=== PATIENT | female | born 1990 | race African-American/Black ===

== ENCOUNTER 2018-02-14 12:04 | Emergency (ER) | payer OTHER ==
[2018-02-14 12:13] VITALS: BP 122/91
[2018-02-14] MEDS ORDERED: BUFFERED LIDOCAINE 10 ML SYRINGE SUBQ STA (12:49)
--- NOTE | 2018-02-14 12:57 | ED Physician Documentation ---
PD HPI LOWER EXT INJURY - Stated complaint Stated Complaint: LF FOOT INJURY - Chief complaint Chief Complaint: Ext Problem - History obtained from History obtained from: Patient - History of Present Illness PD HPI LOW EXT INJURY LOCATION: Other (She stubbed her left long toe on bedframe this morning and injured it. She has moderate pain but no other injuries. She is active duty in the .) Review of Systems Constitutional: reports: Reviewed and negative Cardiac: reports: Reviewed and negative Respiratory: reports: Reviewed and negative PD PAST MEDICAL HISTORY - Past Medical History Past Medical History: No - Past Surgical History Past Surgical History: No - Present Medications Home Medications: Ambulatory Orders Medication Instructions Recorded Confirmed No Known Home Medications [No 02/14/18 02/14/18 Known Home Medications] - Allergies Allergies/Adverse Reactions: Allergies Allergy/AdvReac Type Severity Reaction Status Date / Time No Known Drug Allergies Allergy Verified 02/14/18 12:13 - Social History Does the pt smoke?: No Smoking Status: Never smoker Does the pt drink ETOH?: No Does the pt have substance abuse?: No - Immunizations Immunizations are current?: Yes PD ED PE NORMAL - Vitals Vital signs reviewed: Yes - General General: Alert and oriented X 3, No acute distress - Extremities Extremities: Other (Left foot there is an obvious medial deformity of the long toe at the level of the proximal phalanx with normal neurovascular status distal to this.) - Neuro Neuro: Alert and oriented X 3, Normal speech Results - Vitals Vitals: Vital Signs - 24 hr 02/14/18 12:10 Temperature 36.6 C Heart Rate 52 L Respiratory 15 Rate Blood Pressure 122/91 H O2 Saturation 100 Oxygen O2 Source Room air - Rads (name of study) Lt Toes Radiology: EMP read contemporaneously (Comminuted intra-articular fracture of the second proximal phalanx with mild displacement and moderate angulation) Procedures - Reduction Body part reduced: Toe Fracture or dislocation: Fracture dislocation Anesthesia: Hematoma block, Lidocaine (enter cc) (2ml) Reduction aftercare: Other (judith tape and frx shoe) PD MEDICAL DECISION MAKING - ED course ED course: After hematoma block the toe was reduced with visual alignment. Then judith taped and a fracture shoe. - Sepsis Event Vital Signs: Vital Signs - 24 hr 02/14/18 12:10 Temperature 36.6 C Heart Rate 52 L Respiratory 15 Rate Blood Pressure 122/91 H O2 Saturation 100 Oxygen O2 Source Room air Departure - Departure Disposition: 01 Home, Self Care Clinical Impression: Fracture dislocation of toe of left foot Qualifiers: Encounter type: initial encounter Fracture type: closed Qualified Code(s): S92.912A - Unspecified fracture of left toe(s), initial encounter for closed fracture Condition: Good Record reviewed to determine appropriate education?: Yes Instructions: ED Fx Toe Closed Comments: Keep the toes judith taped as shown, ibuprofen as needed for pain. 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 Wear the special shoe when up and around. Forms: Activity restrictions Discharge Date/Time: 02/14/18 13:15
--- NOTE | 2018-02-15 23:30 | XRAY Report ---
Procedure Date: 02/14/2018 Accession Number: [id number] / [id number] Procedure: XR - Toe(s) LT CPT Code: FULL RESULT: EXAM: LEFT TOE RADIOGRAPHY EXAM DATE: 02/14/2018 12:31 PM. CLINICAL HISTORY: Deformity. Pain and discoloration. Stubbed toe on bed this morning. COMPARISON: None. TECHNIQUE: 3 views. FINDINGS: Bones: Comminuted fracture through the proximal to mid second proximal phalanx with mild displacement and moderate angulation. The fracture line extends to the articular surface of the MTP joint. Joints: No subluxation. Soft Tissues: No significant abnormality. IMPRESSION: Acute, comminuted, intra-articular fracture of the second proximal phalanx with mild displacement and moderate angulation. RAD[facility]
== END 2018-02-14 13:15 | disposition home or self-care (01) ==
LOC: ED 12:04
DX: S92.512A Displaced fracture of proximal phalanx of left lesser toe(s), initial encounter for closed fracture (principal); W22.03XA Walked into furniture, initial encounter; Y92.003 Bedroom of unspecified non-institutional (private) residence as the place of occurrence of the external cause
CPT/HCPCS: 28515; 73660; 99283

== ENCOUNTER 2018-03-08 12:38 | Emergency (ER) | payer OTHER ==
[2018-03-08 13:35] LABS: HCG UR QUAL POSITIVE
--- NOTE | 2018-03-08 13:45 | ED Physician Documentation ---
History of Present Illness - Stated complaint Stated Complaint: TEST - Chief complaint Chief Complaint: General - History obtained from History obtained from: Patient - History of Present Illness Timing: Other (G0 now G1 with LMP around February 03, has taken a couple of tests at home and they were positive and wants confirmation. She is having no cramping or bleeding.) Review of Systems Constitutional: reports: Reviewed and negative Cardiac: reports: Reviewed and negative Respiratory: reports: Reviewed and negative PD PAST MEDICAL HISTORY - Past Medical History Past Medical History: No Other Past Medical History: Neurological disorder. - Past Surgical History Past Surgical History: No - Present Medications Home Medications: Ambulatory Orders Medication Instructions Recorded Confirmed Vit Calc,Iron,Folic 1 each PO DAILY #90 tablet 03/08/18 [ Vitamins] - Allergies Allergies/Adverse Reactions: Allergies Allergy/AdvReac Type Severity Reaction Status Date / Time No Known Drug Allergies Allergy Verified 02/14/18 12:13 - Social History Does the pt smoke?: No Smoking Status: Never smoker Does the pt drink ETOH?: No Does the pt have substance abuse?: No - Immunizations Immunizations are current?: Yes PD ED PE NORMAL - Vitals Vital signs reviewed: Yes - General General: Alert and oriented X 3, No acute distress - Neuro Neuro: Alert and oriented X 3, Normal speech Results - Vitals Vitals: Vital Signs - 24 hr 03/08/18 03/08/18 13:00 13:48 Temperature 37.1 C 36.7 C Heart Rate 112 H 83 Respiratory 18 17 Rate Blood Pressure 122/85 H 123/90 H O2 Saturation 98 100 Oxygen O2 Source Room air - Labs Labs: Laboratory Tests 03/08/18 13:08 Ur Specific [place] >=1.030 H Urine HCG, Qual POSITIVE PD MEDICAL DECISION MAKING - Sepsis Event Vital Signs: Vital Signs - 24 hr 03/08/18 03/08/18 13:00 13:48 Temperature 37.1 C 36.7 C Heart Rate 112 H 83 Respiratory 18 17 Rate Blood Pressure 122/85 H 123/90 H O2 Saturation 98 100 Oxygen O2 Source Room air Departure - Departure Disposition: 01 Home, Self Care Clinical Impression: Qualifiers: Weeks of gestation: less than 8 weeks Qualified Code(s): Z3A.01 - Less than 8 weeks gestation of Condition: Good Record reviewed to determine appropriate education?: Yes Instructions: ED Care Prescriptions: Vit Calc,Iron,Folic [ Vitamins] 1 each PO DAILY #90 tablet Comments: [facility]. Discharge Date/Time: 03/08/18 13:56
[2018-03-08 13:49] VITALS: BP 123/90
== END 2018-03-08 13:56 | disposition home or self-care (01) ==
LOC: ED 12:38
DX: Z32.01 Encounter for pregnancy test, result positive (principal)
CPT/HCPCS: 81025; 99282; 99283

== ENCOUNTER 2018-03-24 16:28 | Emergency (ER) | payer OTHER ==
--- NOTE | 2018-03-24 16:53 | ED Physician Documentation ---
PD HPI ABD PAIN - Stated complaint Stated Complaint: SPOTTING/7 WEEKS - Chief complaint Chief Complaint: Abd Pain - History obtained from History obtained from: Patient - History of Present Illness Timing - onset: Yesterday (G1 at 7 weeks gestation, LMP February 02 whose had slight spotting and cramping since yesterday. She thinks her blood type is O+.) Review of Systems Constitutional: denies: Fever, Chills Cardiac: reports: Reviewed and negative Respiratory: reports: Reviewed and negative GI: reports: Reviewed and negative PD PAST MEDICAL HISTORY - Past Surgical History Past Surgical History: No - Present Medications Home Medications: Ambulatory Orders Medication Instructions Recorded Confirmed Vit Calc,Iron,Folic 1 each PO DAILY #90 tablet 03/08/18 03/24/18 [ Vitamins] - Allergies Allergies/Adverse Reactions: Allergies Allergy/AdvReac Type Severity Reaction Status Date / Time No Known Drug Allergies Allergy Verified 03/24/18 16:36 - Social History Does the pt smoke?: No Smoking Status: Never smoker Does the pt drink ETOH?: No Does the pt have substance abuse?: No - Immunizations Immunizations are current?: Yes PD ED PE NORMAL - Vitals Vital signs reviewed: Yes - General General: Alert and oriented X 3, No acute distress - Respiratory Respiratory: No respiratory distress, Clear bilaterally - Abdomen Abdomen: Normal bowel sounds, Soft, Non tender - Female Female : Other (I believe that I am able to make out IUP with a heart rate of about 122 on bedside ultrasound, transabdominal approach but I am not confident enough to hang my hat on it.) - Neuro Neuro: Alert and oriented X 3, Normal speech Results - Vitals Vitals: Vital Signs - 24 hr 03/24/18 03/24/18 16:34 19:05 Temperature 36.8 C Heart Rate 71 81 Respiratory 18 16 Rate Blood Pressure 115/68 112/70 O2 Saturation 99 100 Oxygen O2 Source Room air - Labs Labs: Laboratory Tests 03/24/18 03/24/18 03/24/18 16:55 16:55 16:55 WBC 7.7 RBC 4.14 L Hgb 11.9 L Hct 35.0 L MCV 84.6 MCH 28.7 MCHC 33.9 RDW 14.1 Plt Count 276 MPV 7.7 L Neut # (Auto) 5.9 Lymph # (Auto) 1.4 L [place] # (Auto) 0.4 Eos # (Auto) 0.0 Baso # (Auto) 0.0 Absolute Nucleated RBC 0.00 Nucleated RBC % 0.0 Sodium 133 L Potassium 3.7 Chloride 103 Carbon Dioxide 25 Anion Gap 5.0 L BUN 11 Creatinine 0.8 Estimated GFR (MDRD) 105 Glucose 91 Calcium 9.0 Total Bilirubin 0.7 AST 17 ALT 11 Alkaline Phosphatase 39 L Total Protein 7.3 Albumin 4.2 Globulin 3.1 Albumin/Globulin Ratio 1.4 Lipase 32 HCG, Quant Urine Color Urine Clarity Urine pH Ur Specific [place] Urine Protein Urine Glucose (UA) Urine Ketones Urine Occult Blood Urine Nitrite Urine Bilirubin Urine Urobilinogen Ur Leukocyte Esterase Urine RBC Urine WBC Ur Squamous Epith Cells Urine Bacteria Ur Microscopic Review Urine Culture Comments Blood Type O POSITIVE 03/24/18 03/24/18 16:55 19:10 WBC RBC Hgb Hct MCV MCH MCHC RDW Plt Count MPV Neut # (Auto) Lymph # (Auto) [place] # (Auto) Eos # (Auto) Baso # (Auto) Absolute Nucleated RBC Nucleated RBC % Sodium Potassium Chloride Carbon Dioxide Anion Gap BUN Creatinine Estimated GFR (MDRD) Glucose Calcium Total Bilirubin AST ALT Alkaline Phosphatase Total Protein Albumin Globulin Albumin/Globulin Ratio Lipase HCG, Quant 77616.00 Urine Color YELLOW Urine Clarity CLEAR Urine pH 8.0 H Ur Specific [place] 1.010 Urine Protein NEGATIVE Urine Glucose (UA) NEGATIVE Urine Ketones NEGATIVE Urine Occult Blood NEGATIVE Urine Nitrite NEGATIVE Urine Bilirubin NEGATIVE Urine Urobilinogen 0.2 (NORMAL) Ur Leukocyte Esterase TRACE H Urine RBC 0-5 Urine WBC 6-10 H Ur Squamous Epith Cells MANY Squamous H Urine Bacteria Many H Ur Microscopic Review INDICATED Urine Culture Comments NOT INDICATED Blood Type - Rads (name of study) Pelvic sono Radiology: EMP read contemporaneously (Single live intrauterine measuring 6 weeks and 3 days. Note made of complex right ovarian cyst measuring 3 7 x 1.6 x 2.6 cm.) PD MEDICAL DECISION MAKING - Sepsis Event Vital Signs: Vital Signs - 24 hr 03/24/18 03/24/18 16:34 19:05 Temperature 36.8 C Heart Rate 71 81 Respiratory 18 16 Rate Blood Pressure 115/68 112/70 O2 Saturation 99 100 Oxygen O2 Source Room air Departure - Departure Disposition: 01 Home, Self Care Clinical Impression: Threatened affecting intrauterine Condition: Good Record reviewed to determine appropriate education?: Yes Instructions: ED Miscarriage Poss Comments: The baby looks fine on ultrasound making the risk of miscarriage very low. You do have a 3.7 x 1.8 x 2.6 cm complex right ovarian cyst [place] get another ultrasound on this in a few weeks time. Return if worsening.
[2018-03-24 17:09] LABS: BASOPHILS % (AUTO) 0.5 %; EOSINOPHILS % (AUTO) 0.4 %; HGB - HEMOGLOBIN 11.9 g/dL (12.0-16.0); LYMPHOCYTES # (AUTO) 1.4 10^3/uL (1.5-3.5); LYMPHOCYTES % (AUTO) 17.7 %; MEAN CORPUSCULAR HEMOGLOBIN 28.7 pg (27.0-31.0); MEAN CORPUSCULAR HGB CONC 33.9 g/dL (32.0-36.0); MEAN CORPUSCULAR VOLUME 84.6 fL (81.0-99.0); MEAN PLATELET VOLUME 7.7 fL (7.9-10.8); MONOCYTES # (AUTO) 0.4 10^3/uL (0.0-1.0); MONOCYTES % (AUTO) 5.2 %; NEUTROPHILS # (AUTO) 5.9 10^3/uL (1.5-6.6); NEUTROPHILS % (AUTO) 76.2 %; PLT - PLATELET COUNT 276 10^3/uL (130-450); RED BLOOD COUNT 4.14 10^6/uL (4.20-5.40); RED CELL DISTRIBUTION WIDTH 14.1 % (12.0-15.0); WHITE BLOOD COUNT 7.7 x10^3/uL (4.8-10.8)
[2018-03-24 17:19] LABS: ALBUMIN 4.2 g/dL (3.2-5.5); ALBUMIN/GLOBULIN RATIO 1.4 (1.0-2.2); BILIRUBIN,TOTAL 0.7 mg/dL (0.2-1.0); CREATININE 0.8 mg/dL (0.4-1.0); TOTAL PROTEIN 7.3 g/dL (6.7-8.2)
[2018-03-24 19:07] VITALS: BP 112/70
[2018-03-24 19:31] LABS: BILIRUBIN,URINE NEGATIVE (NEGATIVE); GLUCOSE, URINE (UA) NEGATIVE (NEGATIVE); KETONES,URINE (UA) NEGATIVE (NEGATIVE); LEUKOCYTE ESTERASE, URINE TRACE (NEGATIVE); NITRITE,URINE NEGATIVE (NEGATIVE); OCCULT BLOOD,URINE NEGATIVE (NEGATIVE); PROTEIN,URINE NEGATIVE (NEGATIVE); UROBILINOGEN,URINE 0.2 (NORMAL) E.U./dL (NORMAL)
[2018-03-24 19:38] LABS: CLARITY,URINE CLEAR (CLEAR)
[2018-03-24 19:40] LABS: BACTERIA,URINE Many /HPF (None Seen); RBC,URINE 0-5 /HPF (0-5); SQUAMOUS EPITHELIAL CELL,UR MANY Squamous (<= Few)
--- NOTE | 2018-03-24 19:50 | Ultrasound Report ---
Procedure Date: 03/24/2018 Accession Number: [id number] / [id number] Procedure: US - OB First Trimester CPT Code: FULL RESULT: EXAM: FIRST TRIMESTER OBSTETRIC ULTRASOUND (Less than 11 weeks) EXAM DATE: 03/24/2018 07:19 PM. CLINICAL HISTORY: Spotting, 7w. LMP: 02/02/2018. COMPARISONS: None. TECHNIQUE: Transabdominal and transvaginal ultrasound examination with static image documentation. CLINICAL DATES: EGA 7 weeks 1 day with ERLIN 11/09/2018 based on LMP. ASSESSMENT: Gestational Sac: Single intrauterine. Mean gestational sac diameter: 17.3 mm = 6 weeks 0 days. Embryo: CRL (crown-rump length) 5.7 mm = 6 weeks 3 days. Cardiac activity: 123 beats per minute. Yolk sac: 4.1 mm. Amniotic fluid: Not accurately assessed at this gestational age. Early placenta: Not visible at this gestational age. Other: No perigestational fluid collection demonstrated. MATERNAL STRUCTURES: Uterus: Anteverted. Unremarkable. Cervix: Closed. Right Ovary/Adnexa: There is a complex cyst with debris measuring 3.7 x 1.8 x 2.6 cm. Otherwise unremarkable.. The ovary measures 4.2 x 2.7 x 3.9 cm, volume 23 cc. Left Ovary/Adnexa: Unremarkable. The ovary measures 2.8 x 1.1 x 1.5 cm, volume 2.4 cc. Free Fluid: Trace. Other: None. IMPRESSION: 1. Single viable intrauterine at EGA 6 weeks 3 days with ERLIN 11/14/2018 based on crown-rump length RADIA
== END 2018-03-24 20:16 | disposition home or self-care (01) ==
LOC: ED 16:28
DX: O20.0 Threatened abortion (principal); O99.89 Other specified diseases and conditions complicating pregnancy, childbirth and the puerperium; Z3A.01 Less than 8 weeks gestation of pregnancy
CPT/HCPCS: 36415; 76801; 76817; 80053; 81001; 81003; 83690; 84702; 85025; 86900; 86901; 87086; 99283

== ENCOUNTER 2018-09-29 17:49 | Outpatient (CLI) | payer OTHER ==
[2018-09-29 18:21] VITALS: BP 109/68
[2018-09-29 20:02] LABS: MUDS CUTOFF CONCENTRATIONS CUTOFF CONC BELOW:
[2018-09-29 20:21] LABS: AMPHETAMINE SCREEN,URINE NEGATIVE (NEGATIVE); BENZODIAZEPINES SCREEN, URINE NEGATIVE (NEGATIVE); COCAINE SCREEN URINE NEGATIVE (NEGATIVE); METHADONE SCREEN, URINE NEGATIVE (NEGATIVE); METHAMPHETAMINES SCREEN, URINE NEGATIVE (NEGATIVE); OPIATE SCREEN, URINE NEGATIVE (NEGATIVE); OXYCODONE SCREEN, URINE NEGATIVE (NEGATIVE); PROPOXYPHENE SCREEN, URINE NEGATIVE (NEGATIVE); TRICYCLIC ANTIDEPRESSANT,URINE NEGATIVE (NEGATIVE)
[2018-09-29 21:16] LABS: ALBUMIN 3.2 g/dL (3.2-5.5); BILIRUBIN,DIRECT 0.1 mg/dL (0.1-0.5); BILIRUBIN,TOTAL 0.6 mg/dL (0.2-1.0); TOTAL PROTEIN 6.5 g/dL (6.7-8.2)
--- NOTE | 2018-09-30 01:39 | HISTORY & PHYSICAL EXAMINATION ---
DATE OF SERVICE: 09/29/2018 Physician: Ty Frias MD LABOR AND DELIVERY CHECK WITH NST HISTORY OF PRESENT ILLNESS: Patient is a 27-year-old primigravida at 34 weeks 1 day 's gestation who reports vomiting after a barbecue meal earlier today. Her nausea and vomiting have since subsided. She underwent NST, which initially did not meet criteria for reactivity. ELECTRONIC MONITORING TRACING: Baseline 130s. Initial 20-30 minutes, no significant accelerat ions, after which patient met criteria with 315 x 15 accelerations within a moving 20-minute window. Possible uterine irritability. PHYSICAL EXAMINATION GENERAL: Alert, oriented. ABDOMEN: No tenderness. No liver tenderness. GENITOURINARY: Uterus: No appreciable contractions, nontender. Normal resting tone. Cervical exam not accomplished. Urine toxicology screen pending. ASSESSMENT: Patient currently has a category 1 strip with criteria positive for NST. Patient does r eport diminished activity over the last 3 days. Indication for NST criteria being applied to t he strip is decreased movement. Overall, patient's tracing now meets criteria. We revie wed need to report decreased movement. She is to keep her next appointment at the [facility]. TD: 09/29/2018 20:44
== END 2018-09-29 22:14 | disposition home or self-care (01) ==
LOC: WFO 17:49 → FBP 17:52 → WFO 22:14
PROVIDERS: ATTEND Obstetrics & Gynecology
DX: O21.2 Late vomiting of pregnancy (principal); O36.8130 Decreased fetal movements, third trimester, not applicable or unspecified; Z3A.34 34 weeks gestation of pregnancy
CPT/HCPCS: 36415; 80076; 80306; 82239; 99213

== ENCOUNTER 2019-03-08 17:31 | Emergency (ER) | payer OTHER ==
[2019-03-08 18:14] LABS: BASOPHILS % (AUTO) 0.4 %; EOSINOPHILS # (AUTO) 0.2 10^3/uL (0.0-0.7); EOSINOPHILS % (AUTO) 1.8 %; HGB - HEMOGLOBIN 12.8 g/dL (12.0-16.0); LYMPHOCYTES # (AUTO) 1.6 10^3/uL (1.5-3.5); LYMPHOCYTES % (AUTO) 17.8 %; MEAN CORPUSCULAR HEMOGLOBIN 28.3 pg (27.0-31.0); MEAN CORPUSCULAR HGB CONC 32.5 g/dL (32.0-36.0); MONOCYTES # (AUTO) 0.4 10^3/uL (0.0-1.0); MONOCYTES % (AUTO) 4.5 %; NEUTROPHILS # (AUTO) 6.7 10^3/uL (1.5-6.6); NEUTROPHILS % (AUTO) 74.8 %; PLT - PLATELET COUNT 317 10^3/uL (130-450); RED BLOOD COUNT 4.53 10^6/uL (4.20-5.40); RED CELL DISTRIBUTION WIDTH 12.8 % (12.0-15.0); WHITE BLOOD COUNT 8.9 x10^3/uL (4.8-10.8)
[2019-03-08] MEDS ORDERED: KETOROLAC 30 MG/ML VIAL IVP STA (18:19)
[2019-03-08] MEDS ORDERED: LIDOCAINE VISCOUS 2% 15 ML UDC MM STA (18:19)
[2019-03-08] MEDS ORDERED: MAG HYDROX/AL HYDROX/SIMETH 30 ML UDC PO STA (18:19)
[2019-03-08] MEDS ORDERED: ONDANSETRON 4 MG/2 ML VIAL IVP STA (18:19)
--- NOTE | 2019-03-08 18:20 | ED Physician Documentation ---
PD HPI ABD PAIN - Stated complaint Stated Complaint: UPPER ABD PX/NAUSEA - Chief complaint Chief Complaint: Abd Pain - History obtained from History obtained from: Patient - History of Present Illness Timing - onset: Yesterday (She is had consistent nonradiating sharp epigastric pain since yesterday after eating and Oreo cookie. She is been vomiting. Last bowel movement was yesterday relatively normal. No sick contacts.) Review of Systems Ten Systems: 10 systems reviewed and negative Constitutional: denies: Fever, Chills Cardiac: denies: Chest pain / pressure, Palpitations Respiratory: denies: Dyspnea, Cough PD PAST MEDICAL HISTORY - Past Surgical History Past Surgical History: No - Present Medications Home Medications: Ambulatory Orders Medication Instructions Recorded Confirmed Gabapentin 200 mg PO TID 03/08/19 03/08/19 Hydrocodone/Acetaminophen 1 - 2 each PO Q6H PRN #14 tablet 03/08/19 [Hydrocodon-Acetaminophen 5-325] Ondansetron Odt [Zofran] 4 mg TL Q6H PRN #10 tablet 03/08/19 - Allergies Allergies/Adverse Reactions: Allergies Allergy/AdvReac Type Severity Reaction Status Date / Time No Known Drug Allergies Allergy Verified 03/08/19 17:47 - Social History Does the pt smoke?: No Smoking Status: Never smoker Does the pt drink ETOH?: No Does the pt have substance abuse?: No - Immunizations Immunizations are current?: Yes - POLST Patient has POLST: No PD ED PE NORMAL - Vitals Vital signs reviewed: Yes - General General: Alert and oriented X 3, No acute distress - HEENT HEENT: PERRL, EOMI - Neck Neck: Supple, no meningeal sign, No bony TTP - Cardiac Cardiac: RRR, No murmur - Respiratory Respiratory: No respiratory distress, Clear bilaterally - Abdomen Abdomen: Normal bowel sounds, Soft, Other (Tender in the epigastrium and right upper quadrant without surgical signs) - Back Back: No CVA TTP, No spinal TTP - Derm Derm: Normal color, Warm and dry - Extremities Extremities: No edema, No calf tenderness / cord - Neuro Neuro: Alert and oriented X 3, Normal speech Results - Vitals Vitals: Vital Signs - 24 hr 03/08/19 03/08/19 17:46 18:37 Temperature 36.7 C Heart Rate 87 84 Respiratory 16 17 Rate Blood Pressure 132/91 H 141/102 H O2 Saturation 100 100 Oxygen O2 Source Room air - Labs Labs: Laboratory Tests 03/08/19 03/08/19 03/08/19 18:04 18:04 18:14 WBC 8.9 RBC 4.53 Hgb 12.8 Hct 39.4 MCV 87.0 MCH 28.3 MCHC 32.5 RDW 12.8 Plt Count 317 MPV 10.0 Neut # (Auto) 6.7 H Lymph # (Auto) 1.6 [place] # (Auto) 0.4 Eos # (Auto) 0.2 Baso # (Auto) 0.0 Absolute Nucleated RBC 0.00 Nucleated RBC % 0.0 Sodium 141 Potassium 3.5 Chloride 106 Carbon Dioxide 23 Anion Gap 12.0 BUN 10 Creatinine 0.8 Estimated GFR (MDRD) 104 Glucose 130 H Calcium 9.3 Total Bilirubin 2.1 H AST 938 H ALT 838 H Alkaline Phosphatase 161 H Total Protein 8.0 Albumin 4.7 Globulin 3.3 Albumin/Globulin Ratio 1.4 Lipase 38 Urine Color DARK YELLOW Urine Clarity CLEAR Urine pH 6.5 Ur Specific [place] 1.020 Urine Protein TRACE Urine Glucose (UA) NEGATIVE Urine Ketones TRACE Urine Occult Blood NEGATIVE Urine Nitrite NEGATIVE Urine Bilirubin NEGATIVE Urine Urobilinogen 2 H Ur Leukocyte Esterase NEGATIVE Ur Microscopic Review NOT INDICATED Urine Culture Comments NOT INDICATED Urine HCG, Qual NEGATIVE - Rads (name of study) RUQ sono Radiology: EMP read contemporaneously (fatty liver and cholelithiasis) PD MEDICAL DECISION MAKING - ED course ED course: 28-year-old woman with epigastric and right upper quadrant pain with vomiting of days duration. Tender in the right upper quadrant consistent with a biliary etiology as evidenced by her labs with elevated transaminases, bilirubin, and alkaline phosphatase. Ultrasound is shown with cholelithiasis and fatty liver, no clear common bile duct stone but her common bile duct was the upper limits of normal for her age and size. Case discussed by phone with the on-call surgeon, Dr. Bucio who felt that she did not need an urgent intervention but needed ERCP and subsequent cholecystectomy after that. I discussed with the patient the options, at that point she was pretty much pain-free and nausea free. 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 Departure - Departure Disposition: 01 Home, Self Care Clinical Impression: Biliary colic Condition: Good Record reviewed to determine appropriate education?: Yes Health Concerns: abd pain/vomiting Plan of Treatment: [place] with the copy of the ultrasound read and labs. Return over the weekend if worse. Pretty much stick to a clear liquid diet over the weekend without any heavy or fatty foods. Pump and dump after taking narcotic pain medication (hydrocodone) as you are breast-feeding a 3-month old. Return anytime if worsening. As discussed the surgeon here after discussion felt that she would need an ERCP prior to cholecystectomy. He is happy to perform the gallbladder operation after an ERCP is done. Care Goals: as below Assessment: as above Instructions: ED Gallstone W Biliary Colic Prescriptions: Hydrocodone/Acetaminophen [Hydrocodon-Acetaminophen 5-325] 1 - 2 each PO Q6H PRN #14 tablet PRN Reason: pain Ondansetron Odt [Zofran] 4 mg TL Q6H PRN #10 tablet PRN Reason: Nausea / Vomiting Comments: [place] with the copy of the ultrasound read and labs. Return over the weekend if worse. Pretty much stick to a clear liquid diet over the weekend without any heavy or fatty foods. Pump and dump after taking narcotic pain medication (hydrocodone) as you are breast-feeding a 3-month old. Return anytime if worsening. As discussed the surgeon here after discussion felt that she would need an ERCP prior to cholecystectomy. He is happy to perform the gallbladder operation after an ERCP is done.
[2019-03-08 18:31] LABS: ALBUMIN 4.7 g/dL (3.2-5.5); ALBUMIN/GLOBULIN RATIO 1.4 (1.0-2.2); BILIRUBIN,TOTAL 2.1 mg/dL (0.2-1.0); CALCIUM 9.3 mg/dL (8.5-10.3); CREATININE 0.8 mg/dL (0.4-1.0)
[2019-03-08 18:34] LABS: GLUCOSE, URINE (UA) NEGATIVE (NEGATIVE); KETONES,URINE (UA) TRACE mg/dL (NEGATIVE); LEUKOCYTE ESTERASE, URINE NEGATIVE (NEGATIVE); NITRITE,URINE NEGATIVE (NEGATIVE); OCCULT BLOOD,URINE NEGATIVE (NEGATIVE); PH,URINE 6.5 PH (5.0-7.5); PROTEIN,URINE TRACE mg/dL (NEGATIVE); UROBILINOGEN,URINE 2 E.U./dL (NORMAL)
[2019-03-08 18:52] LABS: BILIRUBIN,URINE NEGATIVE (NEGATIVE); CLARITY,URINE CLEAR (CLEAR); HCG UR QUAL NEGATIVE; ICTOTEST,URINE NEGATIVE
--- NOTE | 2019-03-08 20:00 | Ultrasound Report ---
Reason: epigastric/RUQ pain Procedure Date: 03/08/2019 Accession Number: [id number] / [id number] Procedure: US - Abdomen Limited CPT Code: FULL RESULT: EXAM: ABDOMEN ULTRASOUND LIMITED, RUQ EXAM DATE: 03/08/2019 07:40 PM. CLINICAL HISTORY: Epigastric/RUQ pain. COMPARISON: None. TECHNIQUE: Real-time scanning was performed with static images obtained. FINDINGS: Liver: Diffusely echogenic. No definite mass. Normal overall size, 17 cm. Main portal vein flow: Hepatopetal. Gallbladder: Multiple small stones. No wall thickening or localized tenderness. Biliary System: CBD measures 6.5 mm. No intrahepatic or extrahepatic ductal dilatation. Other: Unremarkable right kidney and visualized portions of pancreas. IMPRESSION: 1. Fatty liver. 2. Cholelithiasis. RADIA
[2019-03-08] MEDS ORDERED: ONDANSETRON ODT 4 MG Prepack 2 TL STA (20:57)
[2019-03-08] MEDS ORDERED: HYDROcod/ACET 5/325 Prepack 4 PO STA (20:57)
[2019-03-08 21:01] VITALS: BP 119/80
== END 2019-03-08 21:20 | disposition home or self-care (01) ==
LOC: ED 17:31
DX: K80.20 Calculus of gallbladder without cholecystitis without obstruction (principal); K76.0 Fatty (change of) liver, not elsewhere classified
CPT/HCPCS: 36415; 76705; 80053; 81003; 81025; 83690; 85025; 96374; 99284; A9270; 81001; 87086

== ENCOUNTER 2019-03-09 14:20 | Emergency (ER) | payer OTHER ==
[2019-03-09 15:11] LABS: BASOPHILS % (AUTO) 0.4 %; EOSINOPHILS # (AUTO) 0.2 10^3/uL (0.0-0.7); EOSINOPHILS % (AUTO) 1.5 %; HGB - HEMOGLOBIN 12.6 g/dL (12.0-16.0); LYMPHOCYTES # (AUTO) 0.9 10^3/uL (1.5-3.5); LYMPHOCYTES % (AUTO) 8.2 %; MEAN CORPUSCULAR HEMOGLOBIN 28.8 pg (27.0-31.0); MEAN CORPUSCULAR HGB CONC 32.7 g/dL (32.0-36.0); MEAN CORPUSCULAR VOLUME 88.1 fL (81.0-99.0); MEAN PLATELET VOLUME 9.8 fL (7.9-10.8); MONOCYTES # (AUTO) 0.5 10^3/uL (0.0-1.0); MONOCYTES % (AUTO) 4.3 %; PLT - PLATELET COUNT 288 10^3/uL (130-450); RED BLOOD COUNT 4.37 10^6/uL (4.20-5.40); RED CELL DISTRIBUTION WIDTH 12.9 % (12.0-15.0); WHITE BLOOD COUNT 10.6 x10^3/uL (4.8-10.8)
[2019-03-09 15:35] LABS: ALBUMIN 4.5 g/dL (3.2-5.5); ALBUMIN/GLOBULIN RATIO 1.3 (1.0-2.2); CALCIUM 9.7 mg/dL (8.5-10.3); CREATININE 0.8 mg/dL (0.4-1.0); TOTAL PROTEIN 8.1 g/dL (6.7-8.2)
--- NOTE | 2019-03-09 16:17 | ED Physician Documentation ---
PD HPI ABD PAIN - Stated complaint Stated Complaint: ABD PAIN - Chief complaint Chief Complaint: Abd Pain - History obtained from History obtained from: Patient - History of Present Illness Timing - onset: Today (She was seen last night for abdominal pain, found to have gallstones and likely choledocholithiasis based on an obstructive picture of labs and a slightly dilated common bile duct. She went home in improved condition, she says her pain was about 6 or 7 when she got her last night and about 1 when she went home. Pain rebounded this morning after eating oatmeal despite being told to eat only clear liquids. It is better now, but her labs look like slightly worse.) Review of Systems Ten Systems: 10 systems reviewed and negative Constitutional: denies: Fever, Chills Respiratory: denies: Dyspnea, Cough GI: reports: Abdominal Pain, Nausea, Vomiting. denies: Diarrhea PD PAST MEDICAL HISTORY - Past Medical History Neuro: Other - Past Surgical History Past Surgical History: No - Present Medications Home Medications: Ambulatory Orders Medication Instructions Recorded Confirmed Gabapentin 200 mg PO TID 03/08/19 03/08/19 Hydrocodone/Acetaminophen 1 - 2 each PO Q6H PRN #14 tablet 03/08/19 [Hydrocodon-Acetaminophen 5-325] Ondansetron Odt [Zofran] 4 mg TL Q6H PRN #10 tablet 03/08/19 - Allergies Allergies/Adverse Reactions: Allergies Allergy/AdvReac Type Severity Reaction Status Date / Time No Known Drug Allergies Allergy Verified 03/09/19 14:36 - Social History Does the pt smoke?: No Smoking Status: Never smoker Does the pt drink ETOH?: No Does the pt have substance abuse?: No - Family History Family history: reports: Non contributory - Immunizations Immunizations are current?: Yes - POLST Patient has POLST: No PD ED PE NORMAL - Vitals Vital signs reviewed: Yes - General General: Alert and oriented X 3, No acute distress - HEENT HEENT: PERRL, EOMI - Neck Neck: Supple, no meningeal sign, No bony TTP - Cardiac Cardiac: RRR, No murmur - Respiratory Respiratory: No respiratory distress, Clear bilaterally - Abdomen Abdomen: Other (Mild right upper quadrant tenderness with equivocal worse Hughes sign, no surgical signs otherwise.) - Back Back: No CVA TTP, No spinal TTP - Derm Derm: Normal color, Warm and dry - Extremities Extremities: No edema, No calf tenderness / cord - Neuro Neuro: Alert and oriented X 3, Normal speech - Psych Psych: Normal mood, Normal affect Results - Vitals Vitals: Vital Signs - 24 hr 03/09/19 14:33 Temperature 36.2 C L Heart Rate 85 Respiratory 19 Rate Blood Pressure 122/87 H O2 Saturation 100 Oxygen O2 Source Room air - Labs Labs: Laboratory Tests 03/09/19 03/09/19 15:04 15:04 WBC 10.6 RBC 4.37 Hgb 12.6 Hct 38.5 MCV 88.1 MCH 28.8 MCHC 32.7 RDW 12.9 Plt Count 288 MPV 9.8 Neut # (Auto) 9.0 H Lymph # (Auto) 0.9 L [place] # (Auto) 0.5 Eos # (Auto) 0.2 Baso # (Auto) 0.0 Absolute Nucleated RBC 0.00 Nucleated RBC % 0.0 Sodium 145 Potassium 3.9 Chloride 108 Carbon Dioxide 24 Anion Gap 13.0 BUN 15 Creatinine 0.8 Estimated GFR (MDRD) 104 Glucose 110 H Calcium 9.7 Total Bilirubin 4.0 H AST 1175 H ALT 1511 H Alkaline Phosphatase 204 H Total Protein 8.1 Albumin 4.5 Globulin 3.6 Albumin/Globulin Ratio 1.3 Lipase 29 PD MEDICAL DECISION MAKING - ED course ED course: 28-year-old woman with presumed choledocholithiasis based on obstructive labs and ultrasound last night with mildly dilated common bile duct returns with recurrent and slightly worse pain now. Labs are worse from an obstructive pattern. 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 Flores the surgeon. She wants to go POV and signed AMA for mode of transport only. Departure - Departure Disposition: 02 Transfer Acute Care Hosp Clinical Impression: Biliary colic, Benign obstructive jaundice Condition: Fair
[2019-03-09 17:47] VITALS: BP 105/67
== END 2019-03-09 17:47 | disposition short-term general hospital (02) ==
LOC: ED 14:20
DX: K80.20 Calculus of gallbladder without cholecystitis without obstruction (principal)
CPT/HCPCS: 36415; 80053; 83690; 85025; 99283

== ENCOUNTER 2019-10-19 13:51 | Emergency (ER) | payer OTHER ==
[2019-10-19] MEDS ORDERED: SODIUM CHLORIDE 0.9% 1,000 ML IV ONE (13:57)
[2019-10-19] MEDS ORDERED: ONDANSETRON 4 MG/2 ML VIAL IVP STA (13:57)
--- NOTE | 2019-10-19 14:04 | ED Physician Documentation ---
PD HPI NVD - Stated complaint Stated Complaint: VOMITING - Chief complaint Chief Complaint: Abd Pain - History obtained from History obtained from: Patient, Family - History of Present Illness Timing - onset: Today Timing - duration: Days (1) Timing - details: Gradual onset Pain level max: 2 Pain level now: 2 Associated symptoms: Abdominal pain (Crampy, diffuse) Contributing factors: Sick contact (Has a 1-year-old that attends daycare), Bad food (Ate lobster last night). No: Travel, Recent antibiotics, Alcohol use, Anticoagulated, Diabetes Improved by: Vomiting Worsened by: Eating Recently seen: Not recently seen Review of Systems Constitutional: denies: Fever, Chills Throat: denies: Sore throat Cardiac: denies: Chest pain / pressure, Palpitations Respiratory: denies: Cough GI: reports: Nausea, Vomiting, Diarrhea Skin: denies: Rash Musculoskeletal: denies: Neck pain, Back pain Neurologic: denies: Headache PD PAST MEDICAL HISTORY - Past Medical History Past Medical History: No Neuro: Other - Past Surgical History Past Surgical History: No - Present Medications Home Medications: Ambulatory Orders Medication Instructions Recorded Confirmed Gabapentin 200 mg PO TID 03/08/19 03/08/19 Hydrocodone/Acetaminophen 1 - 2 each PO Q6H PRN #14 tablet 03/08/19 [Hydrocodon-Acetaminophen 5-325] Ondansetron Odt [Zofran] 4 mg TL Q6H PRN #10 tablet 03/08/19 Ondansetron Odt [Zofran] 4 mg TL Q6H PRN #10 tablet 10/19/19 - Allergies Allergies/Adverse Reactions: Allergies Allergy/AdvReac Type Severity Reaction Status Date / Time No Known Drug Allergies Allergy Verified 10/19/19 13:54 - Living Situation Living Situation: reports: With family Living Arrangement: reports: At home - Social History Does the pt smoke?: No Smoking Status: Never smoker Does the pt drink ETOH?: No Does the pt have substance abuse?: No - Immunizations Immunizations are current?: Yes - POLST Patient has POLST: No PD ED PE NORMAL - Vitals Vital signs reviewed: Yes - General General: Alert and oriented X 3, No acute distress, Well developed/nourished - HEENT HEENT: Moist mucous membranes - Neck Neck: Supple, no meningeal sign - Cardiac Cardiac: RRR, Strong equal pulses - Respiratory Respiratory: No respiratory distress, Clear bilaterally - Abdomen Abdomen: Soft, Non tender, Non distended - Derm Derm: Warm and dry, No rash - Extremities Extremities: No edema - Neuro Neuro: Alert and oriented X 3 - Psych Psych: Normal mood, Normal affect Results - Vitals Vitals: Vital Signs - 24 hr 10/19/19 10/19/19 13:54 15:16 Temperature 37 C Heart Rate 106 H 96 Respiratory 15 16 Rate Blood Pressure 119/69 98/57 L O2 Saturation 98 99 Oxygen O2 Source Room air - Labs Labs: Laboratory Tests 10/19/19 10/19/19 14:17 14:17 WBC 13.9 H RBC 4.69 Hgb 13.2 Hct 40.7 MCV 86.8 MCH 28.1 MCHC 32.4 RDW 12.6 Plt Count 193 MPV 9.8 Neut # (Auto) 13.0 H Lymph # (Auto) 0.4 L [place] # (Auto) 0.4 Eos # (Auto) 0.0 Baso # (Auto) 0.1 Absolute Nucleated RBC 0.00 Nucleated RBC % 0.0 Sodium 137 Potassium 4.2 Chloride 106 Carbon Dioxide 21 Anion Gap 10.0 BUN 15 Creatinine 0.7 Estimated GFR (MDRD) 122 Glucose 121 H Calcium 9.6 Total Bilirubin 1.2 H AST 22 ALT 22 Alkaline Phosphatase 78 Total Protein 7.8 Albumin 4.7 Globulin 3.1 Albumin/Globulin Ratio 1.5 Lipase 25 PD MEDICAL DECISION MAKING - ED course Complexity details: reviewed results, re-evaluated patient, considered differential, d/w patient, d/w family ED course: Patient with what appears to be a viral gastroenteritis. IV fluids given. Zofran given. Tolerating p.o. without difficulty. Feels much better. Abdomen is soft, nontender nondistended on serial exam. Patient and family counseled regarding signs and symptoms for which I believe and urgent re-evaluation would be necessary. Patient with good understanding of and agreement to plan and is comfortable going home at this time This document was made in part using voice recognition software. While efforts are made to proofread this document, sound alike and grammatical errors may occur. Departure - Departure Disposition: 01 Home, Self Care Clinical Impression: Viral gastroenteritis Condition: Good Instructions: ED Gastroenteritis Viral Follow-Up: Noam Arredondo MD [Primary Care Provider] - As Needed Prescriptions: Ondansetron Odt [Zofran] 4 mg TL Q6H PRN #10 tablet PRN Reason: Nausea / Vomiting Comments: Drink plenty of fluids and rest. The nausea and vomiting should improve today. The diarrhea will likely improve over the next day or 2. Return if you worsen. Discharge Date/Time: 10/19/19 15:32
[2019-10-19 14:24] LABS: BASOPHILS # (AUTO) 0.1 10^3/uL (0.0-0.1); BASOPHILS % (AUTO) 0.4 %; EOSINOPHILS % (AUTO) 0.1 %; HGB - HEMOGLOBIN 13.2 g/dL (12.0-16.0); LYMPHOCYTES # (AUTO) 0.4 10^3/uL (1.5-3.5); LYMPHOCYTES % (AUTO) 2.7 %; MEAN CORPUSCULAR HEMOGLOBIN 28.1 pg (27.0-31.0); MEAN CORPUSCULAR HGB CONC 32.4 g/dL (32.0-36.0); MEAN CORPUSCULAR VOLUME 86.8 fL (81.0-99.0); MEAN PLATELET VOLUME 9.8 fL (7.9-10.8); MONOCYTES # (AUTO) 0.4 10^3/uL (0.0-1.0); MONOCYTES % (AUTO) 2.9 %; NEUTROPHILS % (AUTO) 93.5 %; PLT - PLATELET COUNT 193 10^3/uL (130-450); RED BLOOD COUNT 4.69 10^6/uL (4.20-5.40); RED CELL DISTRIBUTION WIDTH 12.6 % (12.0-15.0); WHITE BLOOD COUNT 13.9 x10^3/uL (4.8-10.8)
[2019-10-19 14:44] LABS: ALBUMIN 4.7 g/dL (3.2-5.5); ALBUMIN/GLOBULIN RATIO 1.5 (1.0-2.2); BILIRUBIN,TOTAL 1.2 mg/dL (0.2-1.0); CALCIUM 9.6 mg/dL (8.5-10.3); CREATININE 0.7 mg/dL (0.4-1.0); TOTAL PROTEIN 7.8 g/dL (6.7-8.2)
[2019-10-19 15:17] VITALS: BP 98/57
== END 2019-10-19 15:32 | disposition home or self-care (01) ==
LOC: ED 13:51
DX: A08.4 Viral intestinal infection, unspecified (principal)
CPT/HCPCS: 36415; 80053; 83690; 85025; 96361; 96374; 99284

== ENCOUNTER 2020-02-05 05:27 | Emergency (ER) | payer OTHER ==
--- NOTE | 2020-02-05 05:47 | ED Physician Documentation ---
History of Present Illness - Stated complaint Stated Complaint: ABD PX - Chief complaint Chief Complaint: Abd Pain - History obtained from History obtained from: Patient (Patient is a 29-year-old female AD USN Presents with periumbilical abdominal pain with nausea and vomiting x2. She reports the pain gradually got worse this morning she was unable to sleep and continue to vomit and presents to the emergency department for evaluation she reports her last menstrual period was 1 week ago she has had a previous cholecystectomy as well.She denies any dysuria, hematuria or flank pain she denies any vaginal bleeding or pelvic pain.) Review of Systems Constitutional: reports: Reviewed and negative Eyes: reports: Reviewed and negative Ears: reports: Reviewed and negative Nose: reports: Reviewed and negative Throat: reports: Reviewed and negative Cardiac: reports: Reviewed and negative Respiratory: reports: Reviewed and negative GI: reports: Abdominal Pain, Nausea, Vomiting : reports: Reviewed and negative Skin: reports: Reviewed and negative Musculoskeletal: reports: Reviewed and negative Neurologic: reports: Reviewed and negative Psychiatric: reports: Reviewed and negative Endocrine: reports: Reviewed and negative Immunocompromised: reports: Reviewed and negative PD PAST MEDICAL HISTORY - Past Medical History Neuro: Other - Past Surgical History Past Surgical History: No - Present Medications Home Medications: Ambulatory Orders Medication Instructions Recorded Confirmed Gabapentin 200 mg PO TID 03/08/19 02/05/20 Hydrocodone/Acetaminophen [[place] 1 each PO Q6H PRN #15 tablet 02/05/20 5-325 Tablet] Naproxen 500 mg PO BID #20 tablet 02/05/20 Ondansetron Odt [Zofran] 4 mg TL Q6H PRN #10 tablet 02/05/20 - Allergies Allergies/Adverse Reactions: Allergies Allergy/AdvReac Type Severity Reaction Status Date / Time No Known Drug Allergies Allergy Verified 02/05/20 05:37 - Social History Does the pt smoke?: No Smoking Status: Never smoker Does the pt drink ETOH?: No Does the pt have substance abuse?: No - Immunizations Immunizations are current?: Yes - POLST Patient has POLST: No PD ED PE NORMAL - Vitals Vital signs reviewed: Yes - General General: Alert and oriented X 3, No acute distress, Well developed/nourished - HEENT HEENT: PERRL, Pharynx benign - Neck Neck: Supple, no meningeal sign - Cardiac Cardiac: RRR, No murmur, Strong equal pulses - Respiratory Respiratory: Clear bilaterally - Abdomen Abdomen: Other (The abdomen is tender to palpation in the periumbilical region nurse tenderness at McBurney's pointPatient is voluntarily guarding she has diminished bowel sounds there is no midline abdominal pulsatile mass there is no CVA tenderness.) - Female Female : Deferred - Rectal Rectal: Deferred - Back Back: No CVA TTP, No spinal TTP - Derm Derm: Normal color, Warm and dry, No rash - Extremities Extremities: No deformity, No tenderness to palpate, Normal ROM s pain, No edema, No calf tenderness / cord - Neuro Neuro: Alert and oriented X 3, 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, No motor deficit, No sensory deficit, Normal speech - Psych Psych: Normal mood, Normal affect Results - Vitals Vitals: Vital Signs - 24 hr 02/05/20 02/05/20 07:37 11:00 Temperature 36.6 C 36.6 C Heart Rate 91 Respiratory 24 Rate Blood Pressure 132/73 H 110/73 O2 Saturation 100 Oxygen O2 Source Room air - Labs Labs: Laboratory Tests 02/05/20 02/05/20 02/05/20 05:45 05:45 06:10 WBC 11.4 H RBC 4.27 Hgb 12.5 Hct 37.3 MCV 87.4 MCH 29.3 MCHC 33.5 RDW 12.5 Plt Count 249 MPV 10.2 Neut # (Auto) 8.3 H Lymph # (Auto) 2.5 [place] # (Auto) 0.5 Eos # (Auto) 0.0 Baso # (Auto) 0.0 Absolute Nucleated RBC 0.00 Nucleated RBC % 0.0 PT INR APTT Sodium Potassium Chloride Carbon Dioxide Anion Gap BUN Creatinine Estimated GFR (MDRD) Glucose Lactic Acid Calcium Total Bilirubin AST ALT Alkaline Phosphatase Total Creatine Kinase Total Protein Albumin Globulin Albumin/Globulin Ratio Lipase Urine Color YELLOW Urine Clarity HAZY Urine pH 5.5 Ur Specific [place] >1.030 >=1.030 H Urine Protein NEGATIVE Urine Glucose (UA) NEGATIVE Urine Ketones NEGATIVE Urine Occult Blood NEGATIVE Urine Nitrite NEGATIVE Urine Bilirubin NEGATIVE Urine Urobilinogen 0.2 (NORMAL) Ur Leukocyte Esterase NEGATIVE Urine RBC 0-5 Urine WBC 0-3 Ur Squamous Epith Cells MANY Squamous H Amorphous Sediment Few Urine Bacteria Moderate H Ur Microscopic Review INDICATED Urine Culture Comments NOT INDICATED Urine HCG, Qual NEGATIVE 02/05/20 02/05/20 02/05/20 06:10 06:10 06:10 WBC RBC Hgb Hct MCV MCH MCHC RDW Plt Count MPV Neut # (Auto) Lymph # (Auto) [place] # (Auto) Eos # (Auto) Baso # (Auto) Absolute Nucleated RBC Nucleated RBC % PT 12.9 H INR 1.1 APTT 29.1 Sodium 135 Potassium 3.2 L Chloride 103 Carbon Dioxide 22 Anion Gap 10.0 BUN 13 Creatinine 0.7 Estimated GFR (MDRD) 121 Glucose 143 H Lactic Acid 1.5 Calcium 8.8 Total Bilirubin 0.5 AST 18 ALT 16 Alkaline Phosphatase 74 Total Creatine Kinase 96 Total Protein 7.0 Albumin 4.0 Globulin 3.0 Albumin/Globulin Ratio 1.3 Lipase 27 Urine Color Urine Clarity Urine pH Ur Specific [place] Urine Protein Urine Glucose (UA) Urine Ketones Urine Occult Blood Urine Nitrite Urine Bilirubin Urine Urobilinogen Ur Leukocyte Esterase Urine RBC Urine WBC Ur Squamous Epith Cells Amorphous Sediment Urine Bacteria Ur Microscopic Review Urine Culture Comments Urine HCG, Qual PD MEDICAL DECISION MAKING - ED course Complexity details: reviewed results, re-evaluated patient, considered differential (appendicitis), d/w patient, other (patient signed out at shift change to dr. mares pending results of CT Scan. ) Departure - Departure Disposition: 01 Home, Self Care Clinical Impression: Abdominal pain Qualifiers: Abdominal location: periumbilical Qualified Code(s): R10.33 - Periumbilical pain Ovarian cyst Qualifiers: Laterality: right Qualified Code(s): N83.201 - Unspecified ovarian cyst, right side Condition: Stable Instructions: ED Abdominal Pain Unkn Cause, ED Cyst Ovarian Follow-Up: Noam Arredondo MD [Primary Care Provider] - Prescriptions: Hydrocodone/Acetaminophen [[place]man 5-325 Tablet] 1 each PO Q6H PRN #15 tablet PRN Reason: Pain Naproxen 500 mg PO BID #20 tablet Ondansetron Odt [Zofran] 4 mg TL Q6H PRN #10 tablet PRN Reason: Nausea / Vomiting Comments: Most likely diagnosis is a ruptured or partly ruptured cyst. No other acute abnormalities are seen on the CT or ultrasound. There is a cyst on your right ovary. There is some mild free fluid in the pelvis. This would suggest rupturing of the cyst with some fluid causing inflammation and pain. Stay well-hydrated. Use anti-inflammatory naproxen 2-3 times daily. Add ondansetron if needed for nausea and Tylenol or hydrocodone as needed for pain. Recheck if not improved well over the next 2 to 3 days and consistently improving. Return if worsening symptoms or not improved over several days. Forms: Activity restrictions Discharge Date/Time: 02/05/20 11:31
[2020-02-05] MEDS: ONDANSETRON 4 MG/2 ML VIAL IVP STA ×2 (06:17→08:13)
[2020-02-05] MEDS: SODIUM CHLORIDE 0.9% 1,000 ML IV STA ×3 (06:17→09:24)
[2020-02-05] MEDS: MORPHINE 2 MG/ML CARPUJECT IVP STA ×2 (06:17→07:27)
[2020-02-05 06:21] LABS: BASOPHILS % (AUTO) 0.3 %; EOSINOPHILS % (AUTO) 0.4 %; HGB - HEMOGLOBIN 12.5 g/dL (12.0-16.0); LYMPHOCYTES # (AUTO) 2.5 10^3/uL (1.5-3.5); LYMPHOCYTES % (AUTO) 21.6 %; MEAN CORPUSCULAR HEMOGLOBIN 29.3 pg (27.0-31.0); MEAN CORPUSCULAR HGB CONC 33.5 g/dL (32.0-36.0); MEAN CORPUSCULAR VOLUME 87.4 fL (81.0-99.0); MEAN PLATELET VOLUME 10.2 fL (7.9-10.8); MONOCYTES # (AUTO) 0.5 10^3/uL (0.0-1.0); MONOCYTES % (AUTO) 4.2 %; NEUTROPHILS # (AUTO) 8.3 10^3/uL (1.5-6.6); NEUTROPHILS % (AUTO) 73.1 %; PLT - PLATELET COUNT 249 10^3/uL (130-450); RED BLOOD COUNT 4.27 10^6/uL (4.20-5.40); RED CELL DISTRIBUTION WIDTH 12.5 % (12.0-15.0); WHITE BLOOD COUNT 11.4 x10^3/uL (4.8-10.8)
[2020-02-05 06:25] LABS: BILIRUBIN,URINE NEGATIVE (NEGATIVE); GLUCOSE, URINE (UA) NEGATIVE (NEGATIVE); KETONES,URINE (UA) NEGATIVE (NEGATIVE); LEUKOCYTE ESTERASE, URINE NEGATIVE (NEGATIVE); NITRITE,URINE NEGATIVE (NEGATIVE); OCCULT BLOOD,URINE NEGATIVE (NEGATIVE); PH,URINE 5.5 PH (5.0-7.5); PROTEIN,URINE NEGATIVE (NEGATIVE); UROBILINOGEN,URINE 0.2 (NORMAL) E.U./dL (NORMAL)
[2020-02-05 06:27] LABS: CLARITY,URINE HAZY (CLEAR); HCG UR QUAL NEGATIVE
[2020-02-05 06:27] LABS: INR 1.1 (0.8-1.2); PT - PROTHROMBIN TIME 12.9 secs (9.9-12.6)
[2020-02-05 06:32] LABS: ALBUMIN/GLOBULIN RATIO 1.3 (1.0-2.2); BILIRUBIN,TOTAL 0.5 mg/dL (0.2-1.0); CALCIUM 8.8 mg/dL (8.5-10.3); CREATININE 0.7 mg/dL (0.4-1.0)
[2020-02-05 06:33] LABS: AMORPHOUS SEDIMENT,UR Few /LPF; BACTERIA,URINE Moderate /HPF (None Seen); RBC,URINE 0-5 /HPF (0-5); SQUAMOUS EPITHELIAL CELL,UR MANY Squamous (<= Few)
[2020-02-05 06:35] LABS: PARTIAL THROMBOPLASTIN TIME 29.1 secs (24.9-33.3)
[2020-02-05] MEDS ORDERED: IOVERSOL 320 100 ML VIAL IVP ONE (06:51)
[2020-02-05] MEDS: IOVERSOL 320 100 ML VIAL IVP ONE (07:25)
--- NOTE | 2020-02-05 08:36 | CT Report ---
Reason: Periumbilical abdominal pain Procedure Date: 02/05/2020 Accession Number: [id number] / [id number] Procedure: CT - Abdomen/Pelvis W CPT Code: Final Report FULL RESULT: PROCEDURE: Abdomen/Pelvis W INDICATIONS: Periumbilical abdominal pain CONTRAST: IV CONTRAST: Optiray 320 ml: 100 PO CONTRAST: *NO PO CONTRAST TECHNIQUE: After the administration of oral and intravenous contrast, 5 mm thick sections acquired from the diaphragms to the symphysis. 5 mm thick coronal and sagittal reformats were acquired. For radiation dose reduction, the following was used: automated exposure control, adjustment of mA and/or kV according to patient size. COMPARISON: None. FINDINGS: Image quality: Excellent. ABDOMEN: Lung bases: Lung bases are clear. Heart size is normal. Solid organs: Liver and spleen are normal in size and enhancement. Gallbladder is contracted. Hypodense area is seen in the region of the gallbladder lumen concerning for a stone. There is no intrahepatic biliary ductal dilatation. Prominence of the common bile duct is seen with questionable intraluminal filling defects concerning for choledocholithiasis. Common bile duct measures up to 7 mm in diameter. Pancreas enhances normally. No adrenal nodules. Kidneys demonstrate normal size and enhancement, without hydronephrosis. Small subcentimeter right renal cortical cysts are seen. Cortical calcification is noted in the interpolar right kidney with focal area of cortical atrophy involving posterior lateral cortex of lower pole right kidney likely represent prior infection or infarction. Peritoneum and bowel: Bowel loops demonstrate normal wall thickness and caliber. No free fluid or air. Appendix is visualized and is within normal limits. Nodes and vessels: No retroperitoneal or mesenteric adenopathy by size criteria. Aorta and inferior vena cava are normal in size. Miscellaneous: No ventral hernias. PELVIS: Genitourinary: Bladder wall thickness is normal. Miscellaneous: No inguinal hernias or adenopathy. 2.2 x 1.8 cm right adnexal cyst is seen. Uterus and left adnexa show no gross abnormality. Bones: No suspicious bony lesions. No vertebral body compression fractures. IMPRESSION: 1. Cholelithiasis with suggestion of choledocholithiasis and prominence of common bile duct. Acute cholecystitis cannot be excluded. Clinical correlation is recommended. 2. No bowel obstruction. Normal appendix. No free fluid or free air. 3. Right adnexal cyst as above. No significant discrepancy from the preliminary reading. Reviewed by: Mandeep Olvera MD on 02/05/2020 8:34 AM PDT Approved by: Mandeep Olvera MD on 02/05/2020 8:34 AM PDT Station ID: [id number]
[2020-02-05] MEDS: KETOROLAC 30 MG/ML VIAL IVP STA (08:39)
--- NOTE | 2020-02-05 10:16 | Ultrasound Report ---
Reason: ductal dilation and ? obstruction by CT Procedure Date: 02/05/2020 Accession Number: [id number] / [id number] Procedure: US - Abdomen Limited CPT Code: Final Report FULL RESULT: PROCEDURE: Abdomen Limited INDICATIONS: ductal dilation and ? obstruction by CT TECHNIQUE: Real-time focused scanning was performed of the abdomen, with image documentation. COMPARISON: March 08, 2019, February 05, 2020 CT. FINDINGS: The gallbladder is surgically absent. The common duct is normal measuring between 3 and 6 mm. No evidence of choledocholithiasis. The common hepatic duct is nondilated at 4 mm. No intrahepatic biliary dilatation. The liver is normal in size and echotexture. No discrete mass. The pancreas is normal without ductal dilatation. The right kidney morphology is normal without hydronephrosis. The right kidney measures 11.4 cm in length. No nephrolithiasis. There is a trace amount of fluid anteriorly in Morison's pouch. IMPRESSION: 1. Post cholecystectomy without evidence of choledocholithiasis or biliary dilatation. 2. Trace nonspecific free fluid in Morison's pouch. Consider other intra-abdominal or pelvic pathology for the etiology of fluid. Reviewed by: Ifrah Clarke MD on 02/05/2020 10:14 AM PDT Approved by: Ifrah Clarke MD on 02/05/2020 10:14 AM PDT Station ID: [id number]
[2020-02-05] MEDS: ACETAMINOPHEN 325 MG TABLET PO STA (10:48)
[2020-02-05] MEDS: HYDROmorphone 1 MG/ML CARPUJECT IVP STA (10:49)
[2020-02-05 11:02] VITALS: BP 110/73
--- NOTE | 2020-02-05 11:14 | ED Physician Documentation ---
ED Addendum - Addendum Addendum: 02/05/20 11:11 The patient was seen by me after change of shift and was having some nausea and still some lower abdominal pain. She is back from CT scan and the CT showed's 2 cm right ovarian cyst and some pelvic free fluid normal appendix and no other acute inflammatory process in the lower abdomen. No kidney stones. It was comment of a contracted gallbladder and question of common bile duct dilatation with intraluminal lucencies concerning for biliary obstruction. Recheck at that point showed no tenderness in the upper abdomen and her LFT labs were normal. However the CT did suggest a process going on there. Ultrasound was ordered and showed her to be truly post cholecystectomy and the common bile duct to be normal caliber without any obvious ductal stones. At this point we will go with the likely scenario of the partially ruptured cyst given her abrupt pain last night. The CT should be accurate for excluding appendicitis, kidney stones, obstruction, ovarian torsion. The patient will be discharged with anti-inflammatories and pain medicine to be using with anticipated guidance of improving over the next couple of days and resolution within 3 to 4 days. She is advised on signs I would suggest would be appropriate for returning visit
== END 2020-02-05 11:31 | disposition home or self-care (01) ==
LOC: ED 05:27
DX: N83.201 Unspecified ovarian cyst, right side (principal); R11.2 Nausea with vomiting, unspecified; Z90.49 Acquired absence of other specified parts of digestive tract
CPT/HCPCS: 36415; 74177; 76705; 80053; 81001; 81025; 82550; 83605; 83690; 85025; 85610; 85730; 96361; 96374; 96375; 96376; 99284; A9270; J1170; Q9967; 81003; 87086

== ENCOUNTER 2020-02-07 10:17 | Emergency (ER) | payer OTHER ==
[2020-02-07 11:09] LABS: BASOPHILS % (AUTO) 0.4 %; EOSINOPHILS % (AUTO) 0.4 %; LYMPHOCYTES # (AUTO) 1.1 10^3/uL (1.5-3.5); LYMPHOCYTES % (AUTO) 14.2 %; MEAN CORPUSCULAR HGB CONC 33.1 g/dL (32.0-36.0); MEAN CORPUSCULAR VOLUME 87.7 fL (81.0-99.0); MEAN PLATELET VOLUME 9.4 fL (7.9-10.8); MONOCYTES # (AUTO) 0.3 10^3/uL (0.0-1.0); MONOCYTES % (AUTO) 4.2 %; NEUTROPHILS # (AUTO) 6.5 10^3/uL (1.5-6.6); NEUTROPHILS % (AUTO) 80.6 %; PLT - PLATELET COUNT 229 10^3/uL (130-450); RED BLOOD COUNT 4.48 10^6/uL (4.20-5.40); RED CELL DISTRIBUTION WIDTH 12.3 % (12.0-15.0)
[2020-02-07 11:23] LABS: ALBUMIN 4.4 g/dL (3.2-5.5); ALBUMIN/GLOBULIN RATIO 1.5 (1.0-2.2); CREATININE 0.7 mg/dL (0.4-1.0); TOTAL PROTEIN 7.3 g/dL (6.7-8.2)
[2020-02-07 11:44] LABS: GLUCOSE, URINE (UA) NEGATIVE (NEGATIVE); KETONES,URINE (UA) >=80 mg/dL (NEGATIVE); LEUKOCYTE ESTERASE, URINE NEGATIVE (NEGATIVE); NITRITE,URINE NEGATIVE (NEGATIVE); OCCULT BLOOD,URINE NEGATIVE (NEGATIVE); PROTEIN,URINE NEGATIVE (NEGATIVE); UROBILINOGEN,URINE 0.2 (NORMAL) E.U./dL (NORMAL)
[2020-02-07 11:50] LABS: BILIRUBIN,URINE NEGATIVE (NEGATIVE); CLARITY,URINE CLEAR (CLEAR); HCG UR QUAL NEGATIVE; ICTOTEST,URINE NEGATIVE
[2020-02-07] MEDS ORDERED: HYDROmorphone 1 MG/ML CARPUJECT IM STA (12:55)
[2020-02-07] MEDS ORDERED: KETOROLAC 60 MG/2 ML VIAL IM STA (12:55)
--- NOTE | 2020-02-07 15:27 | Ultrasound Report ---
Reason: worsening pelvic pain. dizziness Procedure Date: 02/07/2020 Accession Number: [id number] / [id number] Procedure: US - Pelvic w/Doppler Complete CPT Code: Final Report FULL RESULT: PROCEDURE: Pelvic w/Doppler Complete INDICATIONS: worsening pelvic pain. dizziness TECHNIQUE: Real-time scanning was performed of the pelvic organs, with image documentation. Additional endovaginal scanning was necessary due to incomplete visualization of the adnexal and endometrial structures by transabdominal scanning. COMPARISON: None. FINDINGS: Transabdominal scanning: Limited scanning through the kidneys shows no hydronephrosis. No pathologic free abdominal fluid. Left greater than right bilateral adnexal free fluid is seen. Endovaginal scanning: Uterus: Uterus is normal in size at 9.1 x 3.9 x 5.6 cm. Mildly heterogeneous myometrial echotexture is seen. The endometrium measures 12 mm in combined thickness. No gross endometrial mass or fluid. Small nabothian cysts are noted within endocervical canal. Ovaries: Right ovary measures 3.9 x 2.7 x 4.2 cm in size. 3.5 x 2.4 x 2.5 cm simple appearing cyst is seen in right ovary. Left ovary measures 3.2 x 1.6 x 1.5 cm in size. No solid appearing ovarian lesion. Normal arterial and venous flow is seen in bilateral ovaries on color Doppler images. IMPRESSION: 1. No gross endometrial mass or fluid. No discrete uterine fibroid is seen. 2. Simple appearing cyst in right ovary. No solid appearing ovarian lesion. No evidence of ovarian torsion. 3. Small amount of free fluid in bilateral adnexa more prominent on the left side. Reviewed by: Mandeep Olvera MD on 02/07/2020 3:26 PM PDT Approved by: Mandeep Olvera MD on 02/07/2020 3:26 PM PDT Station ID: [id number]
--- NOTE | 2020-02-07 15:55 | ED Physician Documentation ---
PD HPI ABD PAIN - Stated complaint Stated Complaint: ABD PX - Chief complaint Chief Complaint: Abd Pain - History obtained from History obtained from: Patient - Additional information Additional information: Patient comes emergency department complaining of ongoing bilateral pelvic pain since been seen in the emergency department on the third for the same. Patient at that time was diagnosed with abdominal pain and possible ruptured ovarian cyst. She states she has been taking medication for pain at home and just has not been helping. Patient denies any vaginal bleeding. She denies any nausea vomiting no diarrhea or constipation. No dysuria. No fevers. Patient denies any other complaints at this time. Review of Systems Ten Systems: 10 systems reviewed and negative Constitutional: reports: Reviewed and negative Eyes: reports: Reviewed and negative Ears: reports: Reviewed and negative Nose: reports: Reviewed and negative Throat: reports: Reviewed and negative Cardiac: reports: Reviewed and negative Respiratory: reports: Reviewed and negative GI: reports: Abdominal Pain (Pelvic) : reports: Reviewed and negative Skin: reports: Reviewed and negative Musculoskeletal: reports: Reviewed and negative Neurologic: reports: Reviewed and negative Psychiatric: reports: Reviewed and negative Endocrine: reports: Reviewed and negative Immunocompromised: reports: Reviewed and negative PD PAST MEDICAL HISTORY - Past Medical History Cardiovascular: None Respiratory: None Neuro: Other Endocrine/Autoimmune: None GI: None SITE DIRECTOR: None : None HEENT: None Psych: None Musculoskeletal: None Derm: None - Past Surgical History Past Surgical History: No General: Cholecystectomy - Present Medications Home Medications: Ambulatory Orders Medication Instructions Recorded Confirmed Gabapentin 200 mg PO TID 03/08/19 02/05/20 Hydrocodone/Acetaminophen [[place] 1 each PO Q6H PRN #15 tablet 02/05/20 5-325 Tablet] Naproxen 500 mg PO BID #20 tablet 02/05/20 Ondansetron Odt [Zofran] 4 mg TL Q6H PRN #10 tablet 02/05/20 traMADol [Ultram] 100 mg PO Q6H PRN 3 Days #10 tablet 02/07/20 - Allergies Allergies/Adverse Reactions: Allergies Allergy/AdvReac Type Severity Reaction Status Date / Time No Known Drug Allergies Allergy Verified 02/07/20 10:36 - Social History Does the pt smoke?: No Smoking Status: Never smoker Does the pt drink ETOH?: No Does the pt have substance abuse?: No - Immunizations Immunizations are current?: Yes - POLST Patient has POLST: No PD ED PE NORMAL - Vitals Vital signs reviewed: Yes - General General: Alert and oriented X 3, No acute distress, Well developed/nourished - HEENT HEENT: Atraumatic, PERRL, EOMI, Moist mucous membranes - Neck Neck: Supple, no meningeal sign - Cardiac Cardiac: RRR, No murmur, Strong equal pulses - Respiratory Respiratory: No respiratory distress, Clear bilaterally - Abdomen Abdomen: Soft, Non distended, Other (Patient has bilateral lower quadrant tenderness with no rebound or guarding. ) - Derm Derm: Normal color, Warm and dry, No rash - Extremities Extremities: No deformity - Neuro Neuro: Alert and oriented X 3, Other (Grossly normal) - Psych Psych: Normal mood, Normal affect Results - Vitals Vitals: Oxygen O2 Source Room air - Labs Labs: Laboratory Tests 02/07/20 02/07/20 02/07/20 11:02 11:02 11:30 WBC 8.0 RBC 4.48 Hgb 13.0 Hct 39.3 MCV 87.7 MCH 29.0 MCHC 33.1 RDW 12.3 Plt Count 229 MPV 9.4 Neut # (Auto) 6.5 Lymph # (Auto) 1.1 L Hinds # (Auto) 0.3 Eos # (Auto) 0.0 Baso # (Auto) 0.0 Absolute Nucleated RBC 0.00 Nucleated RBC % 0.0 Sodium 139 Potassium 3.6 Chloride 103 Carbon Dioxide 26 Anion Gap 10.0 BUN 11 Creatinine 0.7 Estimated GFR (MDRD) 121 Glucose 88 Calcium 9.0 Total Bilirubin 1.0 AST 16 ALT 15 Alkaline Phosphatase 69 Total Protein 7.3 Albumin 4.4 Globulin 2.9 Albumin/Globulin Ratio 1.5 Lipase 25 Urine Color YELLOW Urine Clarity CLEAR Urine pH 6.0 Ur Specific [place] >=1.030 H Urine Protein NEGATIVE Urine Glucose (UA) NEGATIVE Urine Ketones >=80 H Urine Occult Blood NEGATIVE Urine Nitrite NEGATIVE Urine Bilirubin NEGATIVE Urine Urobilinogen 0.2 (NORMAL) Ur Leukocyte Esterase NEGATIVE Ur Microscopic Review NOT INDICATED Urine Culture Comments NOT INDICATED Urine HCG, Qual 02/07/20 11:30 WBC RBC Hgb Hct MCV MCH MCHC RDW Plt Count MPV Neut # (Auto) Lymph # (Auto) Hinds # (Auto) Eos # (Auto) Baso # (Auto) Absolute Nucleated RBC Nucleated RBC % Sodium Potassium Chloride Carbon Dioxide Anion Gap BUN Creatinine Estimated GFR (MDRD) Glucose Calcium Total Bilirubin AST ALT Alkaline Phosphatase Total Protein Albumin Globulin Albumin/Globulin Ratio Lipase Urine Color Urine Clarity Urine pH Ur Specific [place] >1.030 Urine Protein Urine Glucose (UA) Urine Ketones Urine Occult Blood Urine Nitrite Urine Bilirubin Urine Urobilinogen Ur Leukocyte Esterase Ur Microscopic Review Urine Culture Comments Urine HCG, Qual NEGATIVE - Rads (name of study) US pelvis Radiology: Final report received, EMP read indepedently, See rad report (Pelvic free fluid, more on L. Small R ovarian cyst. No uterine mass.) PD MEDICAL DECISION MAKING - ED course Complexity details: reviewed results, re-evaluated patient, considered femi huffman, d/w patient ED course: The patient was well-appearing in the emergency department, but did have abdominal discomfort on exam. I did feel the best course would be to Do a pelvic ultrasound, as the patient had had a CT of the abdomen and pelvis and a right upper quadrant abdominal ultrasound the last time she was here this did continue to show pelvic free fluid, and a small right ovarian cyst. The patient had been diagnosed with ovarian cyst on her last visit, with the possiblity that she had had a rupture. Is not clear what is causing her persistent pelvic pain and I have discussed with her at this point that the most prudent course would be to follow-up with gynecology, [place], If the pain has not subsided by the end of the weekend, which is 3 days from now. Patient is agreeable to this plan. I have advised her that if she develops fevers or severely worsening abdominal pain she should return to the emergency department. Otherwise, we will change her analgesics in hopes that she can have better control of her pain and patient stable for discharge home. Departure - Departure Disposition: Home, Self Care Clinical Impression: Pelvic pain Condition: Stable Instructions: ED Cyst Ovarian, ED Pelvic Pain UKO Prescriptions: traMADol [Ultram] 100 mg PO Q6H PRN 3 Days #10 tablet PRN Reason: Pain Comments: Your ultrasound today continues to show right ovarian cyst and some free fluid in your pelvis. As you have been advised before this may very well represent a partially ruptured ovarian cyst. Your pain is most likely related to the cyst. However, if you continue to have pain beyond this weekend, you should call your sample tailor and set up an appointment for further evaluation. Your CT scan and ultrasound have otherwise looked good. And there is no evidence of an infectious process or any other serious condition causing your pain. You may try taking the tramadol for the pain as well as ibuprofen. Drink plenty of fluids. Please return to the emergency department if you develop fevers. Discharge Date/Time: 02/07/20 16:36
[2020-02-07 16:36] VITALS: BP 112/65
== END 2020-02-07 16:36 | disposition home or self-care (01) ==
LOC: ED 10:17
DX: R10.2 Pelvic and perineal pain (principal); N83.201 Unspecified ovarian cyst, right side
CPT/HCPCS: 76856; 80053; 81003; 81025; 83690; 85025; 93975; 99284; J1170; 81001; 87086

== ENCOUNTER 2020-10-09 07:00 | Outpatient (CLI) | payer OTHER ==
[2020-10-09 16:07] LABS: MUDS CUTOFF CONCENTRATIONS CUTOFF CONC BELOW:
[2020-10-09 16:11] LABS: BILIRUBIN,URINE NEGATIVE (NEGATIVE); CLARITY,URINE CLOUDY (CLEAR); GLUCOSE, URINE (UA) NEGATIVE (NEGATIVE); KETONES,URINE (UA) NEGATIVE (NEGATIVE); LEUKOCYTE ESTERASE, URINE NEGATIVE (NEGATIVE); NITRITE,URINE NEGATIVE (NEGATIVE); OCCULT BLOOD,URINE NEGATIVE (NEGATIVE); PH,URINE 5.5 PH (5.0-7.5); PROTEIN,URINE NEGATIVE (NEGATIVE); UROBILINOGEN,URINE 0.2 (NORMAL) E.U./dL (NORMAL)
[2020-10-09 16:17] LABS: AMORPHOUS SEDIMENT,UR Marked /LPF; BACTERIA,URINE Rare /HPF (None Seen); RBC,URINE 0-5 /HPF (0-5); SQUAMOUS EPITHELIAL CELL,UR RARE Squamous (<= Few)
[2020-10-09 16:19] LABS: AMPHETAMINE SCREEN,URINE NEGATIVE (NEGATIVE); BENZODIAZEPINES SCREEN, URINE NEGATIVE (NEGATIVE); COCAINE SCREEN URINE NEGATIVE (NEGATIVE); METHADONE SCREEN, URINE NEGATIVE (NEGATIVE); METHAMPHETAMINES SCREEN, URINE NEGATIVE (NEGATIVE); OPIATE SCREEN, URINE NEGATIVE (NEGATIVE); OXYCODONE SCREEN, URINE NEGATIVE (NEGATIVE); PROPOXYPHENE SCREEN, URINE NEGATIVE (NEGATIVE); TRICYCLIC ANTIDEPRESSANT,URINE NEGATIVE (NEGATIVE)
== END 2020-10-09 23:59 | disposition home or self-care (01) ==
LOC: LAB 07:00
PROVIDERS: ATTEND Nurse Practitioner Obstetrics & Gynecology
DX: Z32.01 Encounter for pregnancy test, result positive (principal)
CPT/HCPCS: 80306; 81001; 87086

== ENCOUNTER 2020-10-21 16:52 | Outpatient (CLI) | payer OTHER ==
--- NOTE | 2020-10-22 14:07 | Ultrasound Report ---
PROCEDURE: OB First Trimester INDICATIONS: PREG TEST POSITIVE OUTSIDE/PRIOR DATING DATA: Last menstrual period (LMP): 08/19/21. LMP-based estimated date of delivery (ERLIN): 05/26/21. First dating scan (date and location): 10/21/20. Estimated date of delivery (ERLIN) from first dating scan: 05/28/21. TECHNIQUE: Real-time scanning was performed of the fetus and maternal pelvic organs, with image documentation. COMPARISON: None FINDINGS: Embryo: Single live intrauterine with crown-rump length measuring 2.05 cm corresponding to 8 weeks 5 days. heart rate is present at 167 bpm. Cervix is closed. There is a small focus of subchorionic hemorrhage measuring 19 x 16 x 7 mm. Maternal organs: Ovaries demonstrate a right corpus luteal cyst.. IMPRESSION: 1. Single live intrauterine with ultrasound gestational age of 905/28/2021. 2. Small subchorionic hemorrhage. Reviewed by: Tori Ash MD on 10/22/2020 11:16 AM PST Approved by: Tori Ash MD on 10/22/2020 11:16 AM PST Station ID: [id number]
== END 2020-10-21 16:53 | disposition home or self-care (01) ==
LOC: DI 16:52
PROVIDERS: ATTEND Nurse Practitioner Obstetrics & Gynecology
DX: Z32.01 Encounter for pregnancy test, result positive (principal); O20.8 Other hemorrhage in early pregnancy; Z3A.08 8 weeks gestation of pregnancy

== ENCOUNTER 2020-10-28 08:00 | Outpatient (CLI) | payer OTHER ==
[2020-10-28 21:21] LABS: TRICHOMONAS VAGINALIS DNA NEGATIVE (NEGATIVE)
== END 2020-10-28 23:59 | disposition home or self-care (01) ==
LOC: LAB.R 08:00
PROVIDERS: ATTEND Nurse Practitioner Obstetrics & Gynecology
DX: Z11.3 Encounter for screening for infections with a predominantly sexual mode of transmission (principal)
CPT/HCPCS: 87491; 87591; 87661

== ENCOUNTER 2020-11-10 09:51 | Outpatient (CLI) | payer OTHER ==
[2020-11-10 10:33] LABS: BASOPHILS % (AUTO) 0.4 %; EOSINOPHILS % (AUTO) 0.4 %; HCT - HEMATOCRIT 34.6 % (37.0-47.0); LYMPHOCYTES # (AUTO) 1.3 10^3/uL (1.5-3.5); LYMPHOCYTES % (AUTO) 15.2 %; MEAN CORPUSCULAR HEMOGLOBIN 29.9 pg (27.0-31.0); MEAN CORPUSCULAR HGB CONC 34.7 g/dL (32.0-36.0); MEAN CORPUSCULAR VOLUME 86.3 fL (81.0-99.0); MEAN PLATELET VOLUME 9.7 fL (7.9-10.8); MONOCYTES # (AUTO) 0.4 10^3/uL (0.0-1.0); MONOCYTES % (AUTO) 4.5 %; NEUTROPHILS # (AUTO) 6.6 10^3/uL (1.5-6.6); PLT - PLATELET COUNT 235 10^3/uL (130-450); RED BLOOD COUNT 4.01 10^6/uL (4.20-5.40); RED CELL DISTRIBUTION WIDTH 12.5 % (12.0-15.0); WHITE BLOOD COUNT 8.4 x10^3/uL (4.8-10.8)
[2020-11-11 12:27] LABS: HEPATITIS B SURFACE ANTIGEN NON-REACTIVE (NON-REACTIVE)
[2020-11-11 12:31] LABS: HEPATITIS C ANTIBODY NON-REACTIVE (NON-REACTIVE)
[2020-11-11 13:56] LABS: HIV AG/AB 4TH GEN NON-REACTIVE (NON-REACTIVE)
[2020-11-12 20:57] LABS: VARICELLA ZOSTER VZV AB IGG 506.2 index
== END 2020-11-10 09:52 | disposition home or self-care (01) ==
LOC: LAB 09:51
PROVIDERS: ATTEND Nurse Practitioner Obstetrics & Gynecology
DX: Z36.89 Encounter for other specified antenatal screening (principal); Z36.8A Encounter for antenatal screening for other genetic defects
CPT/HCPCS: 36415; 81220; 85025; 86592; 86762; 86787; 86803; 86850; 86900; 86901; 87340; 87389

== ENCOUNTER 2021-01-08 09:51 | Outpatient (CLI) | payer OTHER ==
--- NOTE | 2021-01-08 15:09 | Ultrasound Report ---
PROCEDURE: OB Detailed Eval INDICATIONS: SUPERVISION OF OUTSIDE/PRIOR DATING DATA: Last menstrual period (LMP): 12. LMP-based estimated date of delivery (ERLIN): 05/26/2021. First dating scan (date and location): 10/21/2020. Estimated date of delivery (ERLIN) from first dating scan: 05/28/2021. Physician stated due date is 05/06. TECHNIQUE: Real-time scanning was performed of the fetus, with image documentation and biometric measurements. COMPARISON: 10/21/2020 FINDINGS: General: A single living intrauterine gestation is present. Presentation: Cephalic Placenta: Placental position is posterior, without previa. Amniotic fluid index: 14 cm, 48% for gestational age. heart rate: 140 beats per minute. Maternal cervical canal: 3.1 cm long; normal length is 2.5 cm or more. biometrics: Biparietal diameter: 4.5 cm, 19 weeks, 4 days Head circumference: 17.3 cm, 19 weeks, 6 days Abdominal circumference: 14.9 cm, 20 weeks, 1 day Femur length: 3.1 cm, 19 weeks, 3 days Estimated gestational age from initial scan: 20 weeks, 2 days Composite gestational age from present scan: 19 weeks, 5 days Estimated weight and percentile: 315 g, 22%. Measurement variability in biometric dating: +/- 10 days from 12-20 weeks gestation, +/- 2 weeks from 20-30 weeks gestation, +/- 3 weeks at 30 weeks gestation or later. Anatomic survey: Neuro: Ventricles are normal at less than 10 mm. Cisterna magna is normal at 3-11 mm. Cerebellum i s normal in size and morphology. Nuchal skin fold: Normal at less than 6 mm between 14 and 20 weeks gestational age. Face: Nose and lips, facial profile are normal. Spine: No evidence for spina bifida. Heart: 4-chambered heart is present, with normal ventricular outflow tracts. Diaphragm: Diaphragm is intact. Stomach: Left-sided stomach is present. Kidneys: No hydronephrosis. Normal is less than 5 mm in 2nd trimester, less than 7 mm in 3rd trimester. Cord: 3 vessel cord has orthotopic insertion. Bladder: Normal in size. Extremities: All 4 extremities are visualized. IMPRESSION: 1. Single live intrauterine with fetus in cephalic presentation. heart rate is 140 bp m. LUZ measures 14 cm which is at 48%. Estimated weight is 315 g which is at 22%. 2. Normal anatomic survey. Reviewed by: Mandeep Olvera MD on 01/08/2021 3:07 PM PDT Approved by: Mandeep Olvera MD on 01/08/2021 3:07 PM PDT Station ID: [id number]
== END 2021-01-08 09:52 | disposition home or self-care (01) ==
LOC: DI 09:51
PROVIDERS: ATTEND Advanced Practice Midwife
DX: Z34.90 Encounter for supervision of normal pregnancy, unspecified, unspecified trimester (principal); Z36.89 Encounter for other specified antenatal screening

== ENCOUNTER 2021-02-24 08:00 | Outpatient (CLI) | payer OTHER ==
[2021-02-24 17:45] LABS: BACTERIAL VAGINOSIS DNA NEGATIVE (NEGATIVE); CANDIDA GLABRATA DNA NEGATIVE (NEGATIVE); CANDIDA GROUP DNA POSITIVE (NEGATIVE); CANDIDA KRUSEI DNA NEGATIVE (NEGATIVE); TRICHOMONAS VAGINALIS DNA NEGATIVE (NEGATIVE)
== END 2021-02-24 23:59 | disposition home or self-care (01) ==
LOC: LAB.WC 08:00
PROVIDERS: ATTEND Nurse Practitioner Obstetrics & Gynecology
DX: R30.0 Dysuria (principal); N76.0 Acute vaginitis
CPT/HCPCS: 87086; 87661; 87801

== ENCOUNTER 2021-03-05 11:56 | Outpatient (CLI) | payer OTHER ==
[2021-03-05 17:55] LABS: HCT - HEMATOCRIT 33.2 % (37.0-47.0); HGB - HEMOGLOBIN 10.8 g/dL (12.0-16.0); MEAN CORPUSCULAR HEMOGLOBIN 29.3 pg (27.0-31.0); MEAN CORPUSCULAR HGB CONC 32.5 g/dL (32.0-36.0); MEAN PLATELET VOLUME 10.6 fL (7.9-10.8); RED BLOOD COUNT 3.69 10^6/uL (4.20-5.40); RED CELL DISTRIBUTION WIDTH 12.7 % (12.0-15.0); WHITE BLOOD COUNT 8.6 x10^3/uL (4.8-10.8)
== END 2021-03-05 23:59 | disposition home or self-care (01) ==
LOC: LAB.WCP 11:56
PROVIDERS: ATTEND Nurse Practitioner Obstetrics & Gynecology
DX: Z34.90 Encounter for supervision of normal pregnancy, unspecified, unspecified trimester (principal); Z36.89 Encounter for other specified antenatal screening
CPT/HCPCS: 36415; 82950; 85025; 85027

== ENCOUNTER 2021-05-04 10:15 | Outpatient (CLI) | payer OTHER | END 2021-05-04 10:16 | disposition home or self-care (01) | LOC: LAB.WC 10:15 | PROVIDERS: ATTEND Nurse Practitioner Obstetrics & Gynecology | DX: Z36.85 Encounter for antenatal screening for Streptococcus B (principal) | CPT/HCPCS: 87797 ==

== ENCOUNTER 2021-05-25 08:00 | Outpatient (CLI) | payer OTHER ==
[2021-05-25 21:48] LABS: BACTERIAL VAGINOSIS DNA NEGATIVE (NEGATIVE); CANDIDA GLABRATA DNA NEGATIVE (NEGATIVE); CANDIDA GROUP DNA POSITIVE (NEGATIVE); CANDIDA KRUSEI DNA NEGATIVE (NEGATIVE); TRICHOMONAS VAGINALIS DNA NEGATIVE (NEGATIVE)
== END 2021-05-25 23:59 | disposition home or self-care (01) ==
LOC: LAB.WC 08:00
PROVIDERS: ATTEND Nurse Practitioner Obstetrics & Gynecology
DX: O99.891 Other specified diseases and conditions complicating pregnancy (principal); N89.8 Other specified noninflammatory disorders of vagina
CPT/HCPCS: 87661; 87801

== ENCOUNTER 2021-05-27 23:41 | Outpatient (CLI) | payer OTHER ==
[2021-05-27 23:57] VITALS: BP 123/88
--- NOTE | 2021-05-28 07:49 | PROVIDER PROGRESS NOTE ---
- HPI Chief Complaint: Labor Check Current : Current EDU 05/26/21 Gestation 40 Weeks and 1 Days 2 Para 1 Vital Signs Temperature 36.9 C 05/27/21 23:52 Heart Rate 92 05/27/21 23:52 Respiratory Rate 18 05/27/21 23:52 Blood Pressure 123/88 H 05/27/21 23:52 Temperature 36.9 C 05/27/21 23:55 Heart Rate 102 H 05/27/21 23:55 Respiratory Rate 20 05/27/21 23:55 Blood Pressure 123/88 H 05/27/21 23:55 O2 Saturation 100 05/27/21 23:55 - Procedures OB Procedure Performed: NST - Plan Plan: 30yo @ presents to [facility] with c/o contractions and redish pink discharge since earlier this evening. She reports her contractions have made her unable to sleep. She denies leakage of fluid. She reports +FM. She is supported by her h usband NST performed 05/27/2021 NST read 05/28/2021 NST reactive. FHR baseline 155, moderate variability, + accels, no decels Contractions palpate mild every 5-7 minutes with soft resting tone SVE 2/50/-3, posterior. Vertex. Pt elects to walk x 1 hour and repeat SVE reveals no change in exam. Pt released home with precautions. Pt has emergency contact number. She verbalized understanding and denies further questions or concerns at this time. FINAL DIAGNOSIS: False labor >37wks gestation
== END 2021-05-28 01:30 | disposition home or self-care (01) ==
LOC: WFO 23:41 → FBP 23:43 → WFO 05-28 01:30
PROVIDERS: ATTEND Nurse Practitioner Obstetrics & Gynecology
DX: O47.1 False labor at or after 37 completed weeks of gestation (principal); Z3A.40 40 weeks gestation of pregnancy
CPT/HCPCS: 99212

== ENCOUNTER 2021-05-28 04:30 | Inpatient (IN) | payer OTHER ==
[2021-05-28] MEDS ORDERED: LIDOCAINE-MPF 1% 30 ML VIAL ID PRN (04:45)
[2021-05-28] MEDS ORDERED: SODIUM CHLORIDE FLUSH 0.9% 10 ML SYRINGE IVP PRN (04:45)
[2021-05-28] MEDS ORDERED: OXYTOCIN/SODIUM CHLORIDE 500 ML IV PRN (04:45)
[2021-05-28] MEDS ORDERED: OXYTOCIN 10 UNIT/ML VIAL IM PRN (04:45)
[2021-05-28] MEDS ORDERED: miSOPROStoL 200 MCG TABLET BC PRN (04:45)
[2021-05-28] MEDS ORDERED: METHYLERGONOVINE 0.2 MG/ML VIAL IM PRN (04:45)
[2021-05-28] MEDS ORDERED: CARBOPROST TROMETHAMINE 250 MCG/ML AMP IM PRN (04:45)
[2021-05-28] MEDS ORDERED: TRANEXAMIC ACID IN NACL 1,000 MG/100 ML BAG IV PRN (04:45)
[2021-05-28] MEDS ORDERED: LACTATED RINGERS 1,000 ML IV SCH (05:00)
[2021-05-28 05:16] LABS: BASOPHILS % (AUTO) 0.3 %; EOSINOPHILS % (AUTO) 0.3 %; HGB - HEMOGLOBIN 12.1 g/dL (12.0-16.0); LYMPHOCYTES # (AUTO) 1.5 10^3/uL (1.5-3.5); LYMPHOCYTES % (AUTO) 12.2 %; MEAN CORPUSCULAR HEMOGLOBIN 27.6 pg (27.0-31.0); MEAN CORPUSCULAR HGB CONC 32.7 g/dL (32.0-36.0); MEAN CORPUSCULAR VOLUME 84.5 fL (81.0-99.0); MEAN PLATELET VOLUME 10.3 fL (7.9-10.8); MONOCYTES # (AUTO) 0.6 10^3/uL (0.0-1.0); MONOCYTES % (AUTO) 4.9 %; NEUTROPHILS # (AUTO) 9.5 10^3/uL (1.5-6.6); NEUTROPHILS % (AUTO) 80.2 %; PLT - PLATELET COUNT 212 10^3/uL (130-450); RED BLOOD COUNT 4.38 10^6/uL (4.20-5.40); RED CELL DISTRIBUTION WIDTH 13.2 % (12.0-15.0); WHITE BLOOD COUNT 11.9 x10^3/uL (4.8-10.8)
[2021-05-28] MEDS ORDERED: ROPIVACAINE 0.2% 200 MG/100 ML BAG EP ONE (05:46)
[2021-05-28] MEDS ORDERED: ePHEDrine 50 MG/ML VIAL IVP PRN (07:02)
[2021-05-28] MEDS ORDERED: NALBUPHINE 10 MG/ML AMP IVP PRN (07:02)
[2021-05-28] MEDS ORDERED: NALOXONE 0.4 MG/ML VIAL IVP PRN (07:02)
[2021-05-28] MEDS ORDERED: ROPIVACAINE 0.2% 200 MG/100 ML BAG EP PRN (07:02)
[2021-05-28] MEDS ORDERED: diphenhydrAMINE INJ 50 MG/ML VIAL IVP PRN (07:02)
[2021-05-28] MEDS ORDERED: ONDANSETRON 4 MG/2 ML VIAL IVP PRN (07:02)
[2021-05-28] MEDS ORDERED: METOCLOPRAMIDE 10 MG/2 ML VIAL IVP PRN (07:02)
--- NOTE | 2021-05-28 07:02 | ANESTHESIA ---
Pre-Anesthesia VS, & Labs - Diagnosis active labor - Procedure labor epidural Vital Signs: Temp Pulse Resp BP Pulse Ox 37 C 88 20 122/78 05/28/21 05:13 05/28/21 05:13 05/28/21 05:13 05/28/21 05:13 Height: 5 ft 7 in Weight (kg): 77.111 kg Body Mass Index: 26.6 BMI Classification: Overweight - NPO >8 hours - Is Patient ?: Yes - Lab Results Current Lab Results: Laboratory Tests 05/28/21 04:58: Blood Type O POSITIVE, Antibody Screen NEGATIVE 05/28/21 04:58: WBC 11.9 H, RBC 4.38, Hgb 12.1, Hct 37.0, MCV 84.5, MCH 27.6, MCHC 32.7, RDW 13.2, Plt Count 212, MPV 10.3, Neut # (Auto) 9.5 H, Lymph # (Auto) 1.5, [place] # (Auto) 0.6, Eos # (Auto) 0.0, Baso # (Auto) 0.0, Absolute Nucleated RBC 0.00, Nucleated RBC % 0.0 Fish Bones: 05/28/21 04:58 Home Medications and Allergies Active Medications Carboprost Tromethamine (Carboprost Tromethamine 250 Mcg/Ml Amp) 250 mcg IM Q15M PRN PRN Reason: Step 4: Hemorrhage protocol Stop: 06/02/21 04:51 Oxytocin/Sodium Chloride (Pitocin/Sodium Chloride) 500 mls @ 999 mls/hr IV PRN PRN; Protocol PRN Reason: POST- HEMORR PREVENTION Stop: 06/02/21 04:51 Tranexamic Acid (Tranexamic 1,000 Mg/100ml-Nacl) 1,000 mg in 100 mls @ 600 mls/hr IV .ONCE PRN PRN Reason: EBL >1200mL and within 3hr Stop: 06/02/21 04:51 Lactated Ringer's (Lr) 1,000 mls @ 150 mls/hr IV .Q6H40M DANNY Last Admin: 05/28/21 06:57 Dose: 150 mls/hr Documented by: Lidocaine HCl (Lidocaine-Mpf 1% 30 Ml Vial) 30 ml ID .ONCE PRN PRN Reason: PERINEAL REPAIR Stop: 06/02/21 04:51 Methylergonovine Maleate (Methylergonovine 0.2 Mg/Ml Vial) 0.2 mg IM .ONCE PRN PRN Reason: Step 2: Hemorrhage protocol Stop: 06/02/21 04:51 Misoprostol (Misoprostol 200 Mcg Tablet) 800 mcg BC .ONCE PRN PRN Reason: Step 3: Hemorrhage protocol Stop: 06/02/21 04:51 Oxytocin (Oxytocin 10 Unit/Ml Vial) 10 unit IM .ONCE PRN PRN Reason: Step one: If no IV access Stop: 06/02/21 04:51 Sodium Chloride (Sodium Chloride Flush 0.9% 10 Ml Syringe) 10 ml IVP PRN PRN PRN Reason: NEEDED PER PROVIDER ORDERS Sodium Chloride (Sodium Chloride Flush 0.9% 10 Ml Syringe) 10 ml IVP 0100,0900,1700 DANNY Gabapentin 200 mg PO TID 03/08/19 Allergies/Adverse Reactions: Allergies Allergy/AdvReac Type Severity Reaction Status Date / Time No Known Drug Allergies Allergy Verified 02/07/20 10:36 Anes History & Medical History - Anesthetic History Anesthesia Complications: reports: No previous complications Family history of Anesthesia Complications: Denies Family history of Malignant Hyperthermia: Denies - Medical History Cardiovascular: reports: None Pulmonary: reports: None Gastrointestinal: reports: None Urinary: reports: None Neuro: reports: Other Musculoskeletal: reports: None Endocrine/Autoimmune: reports: None Blood Disorders: reports: None Skin: reports: None Smoking Status: Never smoker - Surgical History General: reports: Cholecystectomy Exam General: Alert, Oriented x3, Cooperative Dental: WNL Mouth Openin Fingerbreadth Neck Mobility: Normal Mallampati classification: I Thyromental Distance: 4-6 cm Respiratory: Lungs clear Cardiovascular: Regular rate Plan Anesthesia Type: Epidural Consent for Procedure(s) Verified and Reviewed: Yes Code Status: Attempt Resuscitation ASA classification: 2-Mild systemic disease Is this case an emergency?: No
--- NOTE | 2021-05-28 07:46 | HISTORY & PHYSICAL EXAMINATION ---
Admit History - Visit Reason Visit Reason: Contractions - : 2 Parity: 1 Premature: 0 Ectopic: 0 : 0 Care: positive: [facility] Risk/History: positive: None Complications This : positive: None Smoking Status: Never smoker - Mother's Labs Mother's Blood Type: positive: O Mother's RH: positive: Positive GBS: positive: Group B Step Negative Rubella Status: positive: Immune Meds/Allgy - Allergies Allergies/Adverse Reactions: Allergies Allergy/AdvReac Type Severity Reaction Status Date / Time No Known Drug Allergies Allergy Verified 02/07/20 10:36 Review of Systems - Constitutional Constitutional: denies: Fever, Chills, Malaise - Eyes Eyes: denies: Blurred vision, Spots in vision, Dipolpia - Cardiovascular Cariovascular: denies: Irregular heart rate, Chest pain, Edema - Respiratory Respiratory: denies: Cough, SOB at rest - Gastrointestinal Gastrointestinal: denies: Change in bowel habits - Integumentary Integumentary: denies: Rash, Pruritis - Neurological Neurological: denies: Headache Physical - Abdominal Exam Vital Signs: Temp Pulse Resp BP Pulse Ox 37 C 88 20 122/78 05/28/21 05:13 05/28/21 05:13 05/28/21 05:13 05/28/21 05:13 Contraction Frequency (min/apart): 2-5 Contraction Intensity: positive: Moderate Uterine Resting Tone: positive: Soft - Monitoring Heart Rate Baseline: 150 Strip Review: positive: Category I - Presentation Presentation: positive: Vertex - Vaginal Exam Membranes: positive: Membranes intact Dilation (in cm): 4 Effacement (%): 80 Station: positive: -2 - Speculum Exam Speculum Exam Performed: positive: No Plan for Labor - Plan For Labor I expect patient to be DC'd or transferred within 96 hours.: Yes Plan for Labor: Elizabeth is a 30yo @ 40.2wks gestation by LMP c/w 9.0wk U/S who presents to [facility] with c/o contractions that have increased in frequency and intensity throughout the night. SVE upon arrival /-2 and vertex. She denies vaginal bleeding or leakage of fluid. She did report some light brown discharge several hours ago but nothing since that time. She reports +FM. She has been a patient of [facility] through the duration of her which has remained uncomplicated. She will be admitted to [facility] for expectant management. She is supported by her . Dating criteria: LMP: 08/19/2020 Initial ultrasound @ 9.0wk U/S c/w LMP dating Serial exams - agree OB Hx: G1: 11/11/2018, 39wks, 24wks epidural, 8lb3oz G2: current Medications: PNV Allergies: NKDA PMHx: cervical dystonia - benign tremor; Anemia (not in ) Surgical Hx: none Social hx: never smoker. No ETOH or IVDA. to Stu Family Hx: HTN - father; arthritis - MGM, PGM course: LMP 08/19/2020 Initial US 10/21/2020 at 9.0wks c/w LMP for ERLIN 05/26/2021 O pos/Rubella immune VZV: immune Genetic testing: CF-neg; genetics consult declined. FAS: WNL. Posterior placenta, no previa. 3VC. Size c/w dating (EFW 22%). Glucola 103 Influenza: received this season TDAP 02/24/2021 COVID vaccine: not complete GBS neg HSV: denies in self and partner Breast pump Rx 02/24/2021 MOD: Antiicpate ; Daughter Olena, Stu (active duty). It's a GIRL! Keturah; pp contraception: POPs pap: 04/2018 WNL, no hx abnormal paps; collect pap Physical Exam: Normocephalic, atraumatic Heart RRR w/o M/G/R Lungs CTAB Abdomen gravid, soft, nontender EFW 3200g FHR baseline 150s, moderate variability, + accels, no decels Contractions palpate moderate every SVE 4/ Vertex. Intact membranes. Bilateral LE's no edema. Mood is good. Assessment: 30yo @ 40.2wks gestation by LMP c/w 9.0wk U/S Active labor GBS neg FHR Category I Plan: Admit for expectant management Epidural per maternal request- anesthesia notified for placement of epidural Encouraged rotation on peanut ball in bed however we also discussed that she should attempt to sleep as she did not get any sleep last night due to laboring. Repeat SVE PRN. Consider AROM with next SVE. Anticipate .
[2021-05-28] MEDS ORDERED: SODIUM CHLORIDE FLUSH 0.9% 10 ML SYRINGE IVP SCH (09:00)
[2021-05-28] MEDS ORDERED: WITCH HAZEL/GLYCERIN 1 PAD TOP PRN (10:44)
[2021-05-28] MEDS ORDERED: HYDROCORTISONE 1% CREAM 28 GM TUBE PR PRN (10:44)
--- NOTE | 2021-05-28 10:51 | DELIVERY NOTE ---
Delivery Note - Labor Labor: positive: Spontaneous - Delivery Method Delivery Method: positive: Spontaneous vaginal delivery - Presentation Presentation: positive: Vertex, CARLOS - right occiput anterior - Nuchal Cord Nuchal Cord: positive: None - Amniotic Fluid Description Amniotic Fluid Description: positive: Clear - Episiotomy Type Episiotomy Type: positive: None - Laceration Laceration: positive: Other - Suture Suture Type: positive: Vicryl Suture Size: positive: 4-0 - Delivery Outcome Delivery Outcome: positive: Livebirth - [place] : positive: Placed in direct skin contact with mother, Stimulated, Warmed, Mcdonough used [place] sex: positive: Female - Cord Cord: positive: 3 vessels - Placenta Placenta: positive: Intact, Expressed, Other - Estimated Blood Loss Estimated Blood Loss (in cc): 250 - Post Delivery Events Post Delivery Events: positive: No post delivery events - Delivery Comments (Free Text/Narrative) Delivery Comments (Free Text/Narrative): This 30 year old, at 40 2/7 by 9 week US c/w LMP presented @ 0600 in early labor. Cervix was 4/80/-3 and vertex. FHR pattern demonstrated a category 1 pattern. Normal labor course. Epidural placed upon maternal request. SROM occured @ 0738 and amount and color of fluid were noted to be moderate and clear. Pt progressed to c/c @ 0901. : Normal SVB female infant on 05/28/2021 @ 0957. No nuchal. [place] was placed on maternal abdomen, stimulated, dried, and placed skin to skin. 's 9 at 1min and 9 at 5min. Pitocin administered via IV for hemostatis. The umbilical cord was allowed to stop pulsating at which time it was doubly clamped by CNM and cut by FOB. 3 VC. Cord blood was obtained. Fundal massage and gentle cord traction applied for active management of the third stage. Placenta expressed with trailing membranes and velamentous cord insertion at 1011. EBL 250. Fourth stage: Uterine fundus firm and there is no excessive bleeding. The perineum, vagina, and cervix were inspected. Superficial perineal laceration noted and repaired with 4.0 vicryl. Vaginal examination following the repair was done. Tissues well approximated. initiated. Family bonding well. Both mother and baby are in stable condition.
[2021-05-28] MEDS: ACETAMINOPHEN 500 MG TABLET PO SCH ×2 (11:41→23:19)
[2021-05-28] MEDS: IBUPROFEN 800 MG TABLET PO SCH ×2 (11:41→23:19)
[2021-05-28] MEDS: DOCUSATE SODIUM 100 MG CAPSULE PO SCH (23:20)
[2021-05-29] MEDS: ACETAMINOPHEN 500 MG TABLET PO SCH (08:05)
[2021-05-29] MEDS: IBUPROFEN 800 MG TABLET PO SCH (08:06)
[2021-05-29] MEDS: DOCUSATE SODIUM 100 MG CAPSULE PO SCH (08:07)
--- NOTE | 2021-05-29 11:40 | Discharge Plan ---
Discharge Plan Problem Reviewed?: Yes Disposition: Home, Self Care Condition: Good Diet: Regular Activity Restrictions: No Restrictions Shower Restrictions: No Driving Restrictions: No Weight Bearing: Full Weight No Smoking: If you smoke, Please STOP! Call for help. Follow-up with: Odessa Estrada CNM, ARNP [Provider Admit Priv/Credential] -
--- NOTE | 2021-05-29 11:48 | DISCHARGE SUMMARY ---
Discharge Summary Condition at Discharge: Good Discharge Disposition: 01 Home, Self Care - HOSPITAL COURSE Hospital Course: Date of admission: 05/28/2021 Date of discharge: 05/28/2021 Diagnosis on admission: 1. 30yo @ 40.2wks gestation by LMP c/w 9.0wk U/S 2. Active labor 3. GBS neg 4. FHR Category I Diagnosis on discharge: 1: 30yo PPD#1 s/p TSVD viable female 2. intact perineum 3. 4. normal recovery Brief history: She is a patient of [facility] who presented on 05/28/2021 in active labor. Cervix was 4/80/-3 and vertex with intact membranes. She was admitted for expectant management. Epidural placed per maternal request. She spontaneously progressed to deliver a viable female infant on 05/28/2021 @ 0957. Apgars were 9/9 at 1 and 5 minutes respectively. EBL 250mL. Superficial labial abrasion repaired using 4-0 vicryl on an SH needle in standard fashion and under sterile conditions. She has been doing well in her course. She is ambulating and tolerating a regular diet. She is urinating without difficulty and her lochia is normal. Her pain is well controlled with oral medications. She is without difficulty and bonding well with her baby. Her is supportive at the bedside and they desire to be discharged home today. She will be discharged home today on day #1 with instructions to continue taking ibuprofen and tylenol over the counter as needed for pain management and to continue taking her vitamin while . She intends to follow up with myself at [facility] in 1 week for routine visit or sooner if needed. She has been given precautions to call if she has any worsening fevers, chills, abdominal pain, increased vaginal bleeding or foul smelling vaginal lochia. She verbalized understanding and agrees to above plan. She denies further questions or concerns at this time. Physical Exam: Normocephalic, atraumatic, heart RRR w/o M/G/R, lungs CTAB, abdomen soft and nontender with fundus firm at U-1, perineum intact, light lochia rubra, bilateral LE's no edema, mood is good. - ALLERGIES Allergies/Adverse Reactions: Allergies Allergy/AdvReac Type Severity Reaction Status Date / Time No Known Drug Allergies Allergy Verified 02/07/20 10:36 - LABS Result Diagrams: 05/28/21 04:58
[2021-05-29 13:33] VITALS: BP 112/68
== END 2021-05-29 13:20 | disposition home or self-care (01) | DRG 806 ==
LOC: WFO 04:30 → FBP 04:31 → WFO 04:44 → FBP 04:45
PROVIDERS: ADMIT Nurse Practitioner Obstetrics & Gynecology; ATTEND Nurse Practitioner Obstetrics & Gynecology
PROC: 10E0XZZ Delivery of Products of Conception, External Approach (ICD-10-PCS; principal; 2021-05-28)
DX: O48.0 Post-term pregnancy (principal); O47.1 False labor at or after 37 completed weeks of gestation; Z37.0 Single live birth; O70.0 First degree perineal laceration during delivery; Z3A.40 40 weeks gestation of pregnancy
CPT/HCPCS: 36415; 85025; 86850; 86900; 86901; 99214; A9270; J7120; 99212